=== PATIENT | male | born 1955 | race Caucasian/White ===

== ENCOUNTER → 2017-02-19 | Outpatient (REF) | payer MEDICARE, MEDICAID ==
[~2017-02-19] MED LIST: /PANT40TA; /WARF5TA; ASPI325T; ATEN50TA2; COUM1TAB; FURO80TA2; GLUC500T; K-TA10TA; LORTAB; RAMI25CA; SIMV40TA2; SPIR50TA2; VICO5TAB
[2017-02-19 14:40] LABS: BLOOD UREA NITROGEN 29 MG/DL (7-18); CREATININE FOR GFR 0.96 MG/DL (0.70-1.30); FREE T4 1.36 NG/DL (0.76-1.46); GLOMERULAR FILTRATION RATE > 60.0 (>49)
[2017-02-25 00:07] LABS: ACETYLCHOLINE RCPTOR BINDING A < 0.03 nmol/L (0.00-0.24); STRIATIONAL ANTIBODIES Negative (Neg:<1:40)
== END ==
LOC: M LABNEURO 10:14
PROVIDERS: ATTEND Psychiatry & Neurology Neurology
DX: Z13.29 Encounter for screening for other suspected endocrine disorder (principal); I10 Essential (primary) hypertension; E11.9 Type 2 diabetes mellitus without complications; R13.10 Dysphagia, unspecified

== ENCOUNTER → 2018-08-10 | Outpatient (REF) | payer MEDICARE, MEDICAID | LOC: M LAB REF 15:06 | DX: L08.9 Local infection of the skin and subcutaneous tissue, unspecified (principal) | CPT/HCPCS: 87186 ==

== ENCOUNTER → 2020-03-26 | Outpatient (CLI) | payer MEDICARE, MEDICAID ==
[~2020-03-26] MED LIST changes: -/PANT40TA; -/WARF5TA; +ACET500T15 PO; +CARD60TA3 PO; +COUM1TAB17; +ELIQ5TAB PO; +FURO40TA2 PO; -FURO80TA2; +FURO80TA2 PO; +GLIM4TAB5 PO; +HYDR-4514 PO; +HYDR-643 PO; +INSULANT SC; +IPRA0.00 NEB; +ISOS30TA4 PO; -K-TA10TA; +K-TA10TA PO; +LEVA1TAB2 PO; +MAGN400T2 PO; +METO1TAB7 PO; +NICO14PA TOP; +ONDA8TAB10 PO; +POTA10TA16 PO; +PROC10TA4 PO; +PROT1TAB2; +PROT1TAB2 PO; +RAMI1CAP22 PO; -RAMI25CA; +RAMI25CA PO; -SIMV40TA2; +SIMV40TA2 PO; +SIMV40TA20 PO; +TRAZ1TAB11 PO; +TREL1AER PO; -VICO5TAB; +VICO5TAB PO; +VICT18IN SC
== END ==
LOC: M PLARAD 11:10
PROVIDERS: ATTEND Internal Medicine Pulmonary Disease
DX: C34.31 Malignant neoplasm of lower lobe, right bronchus or lung (principal)

== ENCOUNTER 2020-04-03 16:16 | Inpatient (IN) | payer MEDICARE, MEDICAID ==
[~2020-04-03] VITALS: Ht 182.9 cm; Wt 102.8 kg
[~2020-04-03 16:16] MED LIST changes: -ACET500T15 PO; -FURO40TA2 PO; -GLIM4TAB5 PO; -HYDR-4514 PO; -HYDR-643 PO; -LEVA1TAB2 PO; -ONDA8TAB10 PO; -POTA10TA16 PO; -PROC10TA4 PO; -RAMI1CAP22 PO; -SIMV40TA20 PO; -TREL1AER PO
[2020-04-03 16:51] LABS: BASO # 0.1 10^3/uL (0.0-0.2); BASO % 0.7 % (0.0-1.0); EOS # 0.4 10^3/uL (0.0-0.5); EOS % 3.5 % (0.0-3.0); HEMOGLOBIN 11.4 g/dl (13.5-17.5); LYMPH # 0.9 10^3/uL (1.5-5.0); LYMPH % 7.2 % (24.0-44.0); MEAN CORPUSCULAR HEMOGLOBIN 25.4 pg (27.0-33.0); MEAN CORPUSCULAR VOLUME 84.6 fl (80.0-96.0); MONO # 0.9 10^3/uL (0.0-0.8); MONO % 7.6 % (0.0-5.0); NEUTROPHILS # 9.5 10^3/uL (1.5-8.5); NEUTROPHILS % 80.6 % (36.0-66.0); PLATELET COUNT, AUTOMATED 319 10^3/uL (150-450); RED BLOOD COUNT 4.49 10^6/uL (4.30-6.10); WHITE BLOOD COUNT 11.7 10^3/uL (4.0-10.0)
[2020-04-03] MEDS ORDERED: HYDR-643 PO (16:55)
[2020-04-03] MEDS ORDERED: TREL1AER PO (16:55)
[2020-04-03 17:20] LABS: INR 1.21
[2020-04-03 17:24] LABS: ALBUMIN 2.6 GM/DL (3.2-5.2); ALT/SGPT 19 U/L (12-78); BILIRUBIN,DIRECT 0.1 MG/DL (0.0-0.2); BILIRUBIN,TOTAL 0.4 MG/DL (0.2-1.0); BLOOD UREA NITROGEN 21 MG/DL (7-18); CALCIUM LEVEL 9.8 MG/DL (8.8-10.2); CARBON DIOXIDE LEVEL 33 MEQ/L (21-32); CHLORIDE LEVEL 98 MEQ/L (98-107); CREATININE FOR GFR 0.72 MG/DL (0.70-1.30); GLOMERULAR FILTRATION RATE > 60.0 (>49); GLUCOSE, FASTING 186 MG/DL (70-100); POTASSIUM SERUM 4.3 MEQ/L (3.5-5.1); SODIUM LEVEL 133 MEQ/L (136-145)
[2020-04-03] MEDS ORDERED: ISOVUE-370 76% 100ML VIAL As Ordered ONE (17:40)
--- NOTE | 2020-04-03 17:49 | REP ---
PORTABLE CHEST X-RAY: SINGLE VIEW. HISTORY: Dyspnea and cough. COMPARISON STUDY: April 11, 2010 FINDINGS: A bipolar pacemaker is seen in the right heart via the left side as before. The power plant has been exchanged, and one of the pacemaker leads does not appear to be connected to the power plant. Oxygen delivery tubing is seen. Heart is mildly prominent. The left lung is clear. There is a right pleural effusion blunting the lateral pleural angle, small to moderate in size. No infiltrate is seen. IMPRESSION: Small to moderate-sized right pleural effusion suspected. Pacemaker in place. One of the pacemaker leads does not appear to be connected to the power plant. Electronically Signed by Silvestre Hudson MD 04/03/2020 06:03 P
[2020-04-03 17:50] LABS: CK-MB VALUE MASS < 1.0 NG/ML (<3.6); CPK CREATINE PHOSPHOKINASE 20 U/L (39-308); NT-PRO BNP 643 PG/ML (<125); TROPONIN I < 0.02 NG/ML (< 0.10)
--- NOTE | 2020-04-03 18:37 | REPVR ---
PROCEDURE INFORMATION: Exam: CT Angiography Chest With Contrast Exam date and time: 04/03/2020 5:58 PM Age: 64 years old Clinical indication: Shortness of breath; Additional info: Shortness of breath, cancer, effusion TECHNIQUE: Imaging protocol: Computed tomographic angiography of the chest with intravenous contrast. 3D rendering: MIP and/or 3D reconstructed images were created by the technologist. Radiation optimization: All CT scans at this facility use at least one of these dose optimization techniques: automated exposure control; mA and/or kV adjustment per patient size (includes targeted exams where dose is matched to clinical indication); or iterative reconstruction. Contrast material: ISOVUE 370; Contrast volume: 75 ml; Contrast route: INTRAVENOUS (IV); COMPARISON: [place] PORTABLE CHEST X-RAY 04/03/2020 4:41 PM FINDINGS: Tubes, catheters and devices: AICD. Cardiac leads are in place. Pulmonary arteries: No pulmonary emboli. Aorta: The ascending aorta is upper limits of normal measuring 4 cm AP. There is no evidence of dissection. Atherosclerosis in the aorta and coronary arteries. Lungs: Consolidation right perihilar and right lower lobe with air bronchogram in the lower lobe. Pleural space: Large right pleural effusion. Heart: No significant cardiomegaly or pericardial effusion. Lymph nodes: Pretracheal lymph nodes measuring up to 2.3 cm as well as precarinal, infracarinal and right hilar janes mass measuring up to 3.5 cm causing narrowing of the bronchi. Calcified granulomas as well as calcified lymph nodes in the mediastinum and candice. Adrenals: No significant findings in the upper abdomen other than bilateral adrenal enlargement. Bones/joints: Skeletal degeneration. Soft tissues: Unremarkable. IMPRESSION: 1. No pulmonary emboli. 2. Large right pleural effusion with consolidation in the right middle and lower lobes and right perihilar janes mass narrowing the bronchi which may be due to primary lung carcinoma or metastatic disease. 3. Bilateral adrenal enlargement which could be due to metastatic disease. Electronically signed by: Tabatha Bansal On 04/03/2020 18:37:43 PM
[2020-04-03] MEDS ORDERED: GLUCOSE 4GM CHEW TABLET PO PRN (19:30)
[2020-04-03] MEDS ORDERED: GLUCAGON INJ 1MG VIAL SC PRN (19:30)
[2020-04-03] MEDS ORDERED: MOM 30ML SUSPENSION UDC PO PRN (19:30)
[2020-04-03] MEDS ORDERED: DEXTROSE 50% 50 ML SYRINGE IV PRN (19:30)
--- NOTE | 2020-04-03 19:31 | HPEPDOC ---
[facility] Medical History & Physical Date of Admission Apr 03, 2020 Date of Service: Apr 03, [address] Ananth Ellis Attending Physician: PEDRO CHANDLER MD History and Physical TIME OF SERVICE: 8:05 PM CHIEF COMPLAINT: "Having a hard time breathing"..."fluid in my lungs." HISTORY OF PRESENT ILLNESS: This is a 64-year-old gentleman who presented with chief complaints of having a hard time breathing for about 1 week and fluid in his lungs. He has a history of lung cancer with malignant pleural effusion that was last drained in February at [facility]. He saw his PCP, Dr. Ellis today, who told him not to take apixaban tonight and sent him here for further evaluation. In addition to the shortness of breath, he has had persistent, 7 out of 10 in severity diffuse chest pressure for about 1 week; he attributes the chest pressure to the "fluid" in his lungs because he had similar pressure associated with a pleural effusion in the past prior to the thoracentesis. He reports having an occasional cough productive of clear sputum, and denies having lower extremity edema. Per Dr. Contreras the patient was found to be in rapid A. fib and given 1 dose of IV Cardizem; imaging studies confirmed the presence of a right sided pleural effusion. 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 diagnosed in February, plans for chemotherapy are pending PET scan results COPD secondary to tobacco abuse Chronic CAD, status post placement of a stent at [facility] more than 10 years ago Chronic hypertension IDDM Dyslipidemia LIO Dual Chamber Pacemaker placement for AV block Atrial fibrillation Cholecystectomy Resection of skin cancer Shoulder surgery Resection of a tibial abscess SOCIAL HISTORY: Quit smoking 3 months ago (45 year pack habit) He quit drinking about 18 years ago 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 HOME MEDICATIONS: Please see below. PHYSICAL EXAMINATION: Vital Signs Date Time Temp Pulse Resp B/P (MAP) Pulse Ox O2 Delivery O2 Flow Rate FiO2 04/03/20 16:17 99.0 106 38 137/93 (108) 96 Nasal Cannula 4.0 GEN: well-nourished / well developed/ NAD INTEGUMENT: not flushed/ not jaundice HEENT: NCAT / lips acyanotic /mucus membranes moist and pink CVS: Heart rate irregularly irregular and tachycardic/NMRG/ no lower extremity edema LUNGS: able to speak full sentences without stopping to take a breath / no coughing / . Breath sounds are diminished ABDOMEN: Contour ( obese) MSK/EXTREMITIES: range of motion intact in all 4 extremities / mild fingernail clubbing NEURO: CN 2-12 are grossly intact / speech is not dysarthric PSYCH: alert and oriented to person place and time/ able to understand and follow all commands LABORATORY DATA: 04/03/20 16:39 Immature Granulocyte % (Auto) 0.4, Neutrophils (%) (Auto) 80.6H, Lymphocytes (%) (Auto) 7.2L, Monocytes (%) (Auto) 7.6H, Eosinophils (%) (Auto) 3.5H, Basophils (%) (Auto) 0.7, Neutrophils # (Auto) 9.5H, Lymphocytes # (Auto) 0.9L, Monocytes # (Auto) 0.9H, Eosinophils # (Auto) 0.4, Basophils # (Auto) 0.1, Nucleated Red Blood Cells % (auto) 0.0, Prothrombin Time 15.0H, Prothromb Time International Ratio 1.21, Anion Gap 2L, Glomerular Filtration Rate > 60.0, Calcium Level 9.8, Total Bilirubin 0.4, Direct Bilirubin 0.1, Aspartate Amino Transf (AST/SGOT) 11, Alanine Aminotransferase (ALT/SGPT) 19, Alkaline Phosphatase 138H, Total C reatine Kinase 20L, Creatine Kinase MB < 1.0, Creatine Kinase MB Relative Index 5.00H, Troponin I < 0.02, KA-Zxo-O-Type Natriuretic Peptide 643H, Total Protein 7.0, Albumin 2.6L, Albumin/Globulin Ratio 0.6 04/03/20 16:40: POC Glucose (Misc Panel) 190H, POC Sodium (Misc Panel) 135L, POC Potassium (Misc Panel) 4.2, POC Chloride (Misc Panel) 94L, POC Total CO2 (Misc Panel) 30.0H, POC Blood Urea Nitrogen (Misc Panel 21, POC Ionized Calcium (Misc Panel) 4.7, POC Creatinine (Misc Panel) 0.7, POC Hematocrit (Misc Panel) 37.0L 04/03/20 16:43: POC Troponin I (Misc) 0.00 IMAGING: Chest x-ray " IMPRESSION: Small to moderate-sized right pleural effusion suspected. Pacemaker in place. One of the pacemaker leads does not appear to be connected to the power plant." CTA chest " IMPRESSION: 1. No pulmonary emboli. 2. Large right pleural effusion with consolidation in the right middle and lower lobes and right perihilar janes mass narrowing the bronchi which may be due to primary lung carcinoma or metastatic disease. 3. Bilateral adrenal enlargement which could be due to metastatic disease. " MICROBIOLOGY: Please see below. ASSESSMENT: Mr. Carlisle is a 64-year-old with a history of COPD, neuroendocrine tumor of the lung with malignant pleural effusion, chronic CAD, HTN, IDDM, dyslipidemia, LIO, and atrial fibrillation who is admitted for management of A. fib with RVR and right-sided malignant pleural effusion. PLAN: 1. Atrial Fibrillation w RVR RVR may be due to pleural effusion EKG showed afib w HR of 122 and PVCs Trop K, & Ca were wnl CTA was neg for PE BNP was slightly elevated but clinically he did not appear to have fluid ove rload that could be contributing to the rapid afib Plan: ICU / telemetry / start cardizem drip once rate is controlled will resume home dose of PO cardizem 60mg PO TID and titrate the dose as needed / hold apixaban prior to procedure tomorrow / f/u Echo, serial Trops, mag and TSH 2. Recurrent Malignant Pleural Effusion 2/2 Poorly differentiated neuroendocrine tumor of the lung His last thoracentesis was in February at [facility] Plan: NPO after midnight/ will ask the day time team to call IR vice president of talent acquisition in the morning for IR guided thoracentesis and possible pigtail placement / hold abpixaban / request records from [facility] / f/u w Hem/Onc on March 10 3. SIRS Likely reactive due to a combination of afib and cancer SIRS criteria include: HR >90 / RR > 20 Plan telemetry / f/u lactic acid, blood cx and VBG 4. Abnormal pacemaker lead placement ? Chest xray reports "One of the pacemaker leads does not appear to be connected to the power plant" ? Plan: day time team can call the department of radiology during the day to confirm weather this is accurate and consider Cardiology consult 5. Normocytic Anemia His hemoglobin has dropped 11.4 from 12.6 a few weeks ago Plan: Follow up repeat CBC, iron studies and stool occult 6. Asymptomatic Hyponatremia Possibly 2/2 SIADH from lung CA Plan: f/u serum osmol, Uosmol & Jonathon to confirm cause 7.Mild Metabolic Alkalosis Likely 2/2 contraction alkalosis due to diuretic use Plan: the daytime team can decide if NS or acetazolamide are indicated pending Urine Cl determine if it is chloride responsive or chloride unresponsive 7. Stable COPD He is not wheezing. He doesn't have decreased air entry with decreased breath sounds Plan: Trilogy Ellipta and albuterol 8. Chronic CAD/ Dyslipidemia Plan: Metoprolol 9. Chronic hypertension Plan: Diltiazem, furosemide, isosorbide mononitrate, metoprolol succinate, ramipril 10. IDDM Plan: diabetic diet / f/u accuchecks & A1C / hypoglycemia protocol / sliding scale insulin / hold oral anti-glycemics / c/w , Lantus 40 units daily at bedtime and Victoza 1.2 mg subcutaneously daily 11. LIO Plan: own CPAP 12. Obesity With BMI 31.4, and coexisting sleep apnea and diabetes complicates care Plan: f/u A1C / the pt can f/u w his or her PCP for a manager global communications consult DVT PROPHYLAXIS: SCDs DISPOSITION: likely home after more than 2 midnight's stay Home Medications Scheduled Apixaban (Eliquis) 5 Mg Tablet, 5 MG PO BID ON HOLD PER REASON FOR PROCEDURE ON 04/10/20 Diltiazem Hcl (Cardizem) 60 Mg Tablet, 60 MG PO TID Fluticasone/Umeclidin/Vilanter (Trelegy Ellipta 100-62.5-25) 1 Each Blst.w.dev, 1 PUFF PO DAILY Furosemide (Furosemide) 40 Mg Tablet, 40 MG PO DAILY Glimepiride (Glimepiride) 4 Mg Tablet, 4 MG PO DAILY Insulin Glargine (Lantus) 100 Unit/1 Ml Vial, 40 UNITS SC QHS Isosorbide Mononitrate (Isosorbide Mononitrate ER) 30 Mg Tab.er.24h, 30 MG PO DAILY Levofloxacin (Levaquin) 500 Mg Tablet, 500 MG PO DAILY@06 Liraglutide (Victoza 2-Sg) 0.6 Mg/0.1 Ml Pen.injctr, 1.2 MG SC DAILY Magnesium Oxide (Magnesium Oxide) 400 Mg Tablet, 400 MG PO DAILY Metoprolol Succinate (Metoprolol Succinate) 50 Mg Tab.er.24h, 50 MG PO DAILY Nicotine (Nicotine Patch) 14 Mg Patch.td24, 1 PATCH TOP DAILY APPLIED TO LEFT SHOULDER Pantoprazole Sodium (Protonix) 40 Mg Tablet.dr, 40 MG PO DAILY Potassium Chloride (Potassium Chloride) 10 Meq Tab.er.prt, 10 MEQ PO BID Ramipril (Ramipril) 2.5 Mg Capsule, 2.5 MG PO DAILY Simvastatin (Simvastatin) 40 Mg Tablet, 40 MG PO QHS Scheduled PRN Acetaminophen (Acetaminophen) 500 Mg Tablet, 1,000 MG PO Q6H PRN for HEADACHE Hydrocodone/Acetaminophen (Hydrocodone-Acetamin 7.5-325) 1 Each Tablet, 1 TAB PO Q4H PRN for PAIN Ipratropium/Albuterol Sulfate (Iprat-Albut 0.5-3(2.5) mg/3 ml) 3 Ml Ampul.neb, 1 VIAL NEB TID PRN for SHORTNESS OF BREATH Allergies Coded Allergies: Penicillins (Verified Allergy, Unknown, HIVES, 04/03/20) A-FIB/CHADSVASC A-FIB History Current/History of A-Fib/PAF?: Yes Current PO Anticoag Therapy: No Treatment Treatment ordered: Holding Other Reason Anticoagulant not given: Recent/upcomin procedure PEDRO CHANDLER MD Apr 03, 2020 19:31
[2020-04-03] MEDS ORDERED: FURO40TA2 PO (19:46)
[2020-04-03] MEDS ORDERED: SIMV40TA20 PO (19:46)
[2020-04-03] MEDS ORDERED: POTA10TA16 PO (19:47)
[2020-04-03] MEDS ORDERED: RAMI1CAP22 PO (19:47)
[2020-04-03] MEDS ORDERED: ACET500T15 PO (19:47)
[2020-04-03] MEDS ORDERED: GLIM4TAB5 PO (19:47)
[2020-04-03] MEDS ORDERED: HYDR-4514 PO (19:47)
[2020-04-03 20:29] LABS: VENOUS BASE EXCESS 6.6 (-2.0-2.0); VENOUS HCO3 32.7 MEQ/L (23.0-27.0); VENOUS O2 SATURATION 81.6 % (60.0-80.0); VENOUS PARTIAL PRESSURE CO2 53.7 mmHg (38.0-50.0); VENOUS PARTIAL PRESSURE O2 45.2 mmHg (30.0-50.0); VENOUS PH 7.402 UNITS (7.330-7.430); VENOUS STANDARD HCO3 30.1 MEQ/L; VENOUS TOTAL CO2 34.3 MEQ/L (24.0-28.0)
[2020-04-03] MEDS ORDERED: IPRATROPIUM 0.5MG/ALBUTEROL 2.5MG INH SOL UD 3ML (DUONEB) NEB PRN (20:30)
[2020-04-03] MEDS ORDERED: ANEXSIA, NORCO 7.5MG/325MG TABLET(HYDROCODONE/APAP) PO PRN (20:30)
[2020-04-03 20:55] LABS: MAGNESIUM LEVEL 1.8 MG/DL (1.8-2.4); PERCENT SATURATION 11.2 % (19.7-50.0); PHOSPHORUS LEVEL 3.3 MG/DL (2.5-4.9); TROPONIN I 0.02 NG/ML (< 0.10)
[2020-04-03 20:59] VITALS: BP 153/80
[2020-04-03] MEDS: HumaLOG INSULIN (NovoLOG) PER UNIT SC SCH (21:00)
[2020-04-03] MEDS ORDERED: diltiaZEM 125 MG in NS 100 ML IV SCH ×2 (21:00→21:41)
[2020-04-03 21:07] LABS: HEMOGLOBIN A1c 10.6 %
[2020-04-03] MEDS: POTASSIUM CHLORIDE 10 MEQ SR TABLET PO SCH (21:11)
[2020-04-03 21:30] VITALS: BP 153/77
[2020-04-03 21:45] VITALS: BP 129/79
[2020-04-03 21:58] LABS: OSMOLALITY URINE 629 MOSM/KG (500-800)
[2020-04-03 22:00] VITALS: BP 143/80
[2020-04-03 22:10] LABS: CHLORIDE,RANDOM URINE 84 MEQ/L; SODIUM,RANDOM URINE 76 MEQ/L
[2020-04-03] MEDS: LEVEMIR (INSULIN DETEMIR) 1 UNITS/0.01ML SC SCH (22:23)
[2020-04-03] MEDS: ACETAMINOPHEN TAB 650MG DOSE (2X325MG) PO PRN (22:28)
[2020-04-04] VITALS (18 sets, daily range): BP systolic 104–143; BP diastolic 53–76; O2SAT 94–95
[2020-04-04 03:17] LABS: HEMATOCRIT 35.2 % (42.0-52.0); HEMOGLOBIN 10.5 g/dl (13.5-17.5); MEAN CORPUSCULAR HEMOGLOBIN 25.5 pg (27.0-33.0); MEAN CORPUSCULAR HGB CONC 29.8 g/dl (32.0-36.5); MEAN CORPUSCULAR VOLUME 85.6 fl (80.0-96.0); PLATELET COUNT, AUTOMATED 278 10^3/uL (150-450); RED BLOOD COUNT 4.11 10^6/uL (4.30-6.10)
[2020-04-04 03:41] LABS: BLOOD UREA NITROGEN 17 MG/DL (7-18); CALCIUM LEVEL 9.5 MG/DL (8.8-10.2); CARBON DIOXIDE LEVEL 34 MEQ/L (21-32); CHLORIDE LEVEL 102 MEQ/L (98-107); GLOMERULAR FILTRATION RATE > 60.0 (>49); GLUCOSE, FASTING 110 MG/DL (70-100); SODIUM LEVEL 137 MEQ/L (136-145); TROPONIN I < 0.02 NG/ML (< 0.10)
--- NOTE | 2020-04-04 06:25 | ECGEPIP ---
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
[2020-04-04] MEDS: HumaLOG INSULIN (NovoLOG) PER UNIT SC SCH ×4 (07:30→21:12)
[2020-04-04] MEDS: TIOTROPIUM INHALER/CAPSULE (SPIRIVA) INH SCH (08:00)
[2020-04-04] MEDS: ADVAIR HFA 115/21MCG INHALER INH SCH ×2 (08:00→19:40)
[2020-04-04] MEDS: NICOTINE 14 MG/24 HR TRANSDERMAL TOP SCH (08:20)
[2020-04-04] MEDS: POTASSIUM CHLORIDE 10 MEQ SR TABLET PO SCH ×2 (08:21→21:14)
[2020-04-04] MEDS: FUROSEMIDE 40 MG TAB PO SCH (08:22)
[2020-04-04] MEDS: ramipriL 1.25 MG CAP PO SCH (08:22)
[2020-04-04] MEDS: PANTOPRAZOLE 40MG TAB (PROTONIX) PO SCH (08:22)
[2020-04-04] MEDS: METOPROLOL SUCC (TopROL XL) 50MG **XL** TAB PO SCH (08:23)
[2020-04-04] MEDS: MAGNESIUM OXIDE 400 MG TAB (MAG-OX) PO SCH (08:23)
[2020-04-04] MEDS: ISOSORBIDE MON. (IMDUR) 30 MG XR TAB PO SCH (08:23)
[2020-04-04] MEDS ORDERED: VICTOZA SC SCH (09:00)
[2020-04-04] MEDS ORDERED: TRELEGY INH SCH (09:00)
--- NOTE | 2020-04-04 12:12 | IPNPDOC ---
Text Note Date of Service The patient was seen on 04/04/20. NOTE Subjective: Patient is a 64-year-old male with a PMHx of 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 fib (on Eliquis), Chronic HTN, IDDM2, DLP, LIO, who presented to the hospital with complaints of shortness of breath, progressive over 1 week duration. Patient had a history of a right-sided pleural effusion secondary to malignancy that was drained in February at [facility]. Patient was scheduled to see his chief digital officer next week April 10 for drainage. However, he experienced worsening SOB while at home and his PCP advised him to present to the ER for further evaluation. In the ER, patient was found to have atrial fibrillation with rapid ventricular rate as well as recurrent right-sided pleural effusion is admitted to the hospitalist service for further evaluation. Patient was seen and examined at the bedside. Currently he reports SOB and R sided chest pain with deep inspiration. Denies any significant cough. Denies N/V, abdominal pain, C/D or dysuria. Objective: Vitals (See below) General: Lying in bed, appears to be SOB, AAOx3 HEENT: NC, AT CVS: +S1S2 Lungs: Diminished lung sounds at right lung field. No evidence of wheezing, rhonchi or crackles Abdomen: Soft, ND, NT Extremities: - Edema, - Calf tenderness Assessment and plan: Atrial Fibrillation w/ RVR - possibly 2/2 recurrent pleural effusion - Patient reports that his breathing is unchanged but denies any chest pain or palpitations - Patient is hemodynamically stable and afebrile - Rate appears to be well-controlled - Troponin x3 negative - EKG reviewed - Will discontinue Cardizem drip and continue with Cardizem and metoprolol by mouth - Will hold anticoagulation (re: Thoracentesis) Recurrent Malignant Pleural Effusion 2/2 Poorly differentiated neuroendocrine tumor of the lung - Patient still reports shortness of breath - History of thoracenteses in 02/2019 at [facility] - Requiring 2 L nasal cannula supplementation of oxygen - CTA 04/03: 1. No pulmonary emboli. 2. Large right pleural effusion with consolidation in the right middle and lower lobes and right perihilar janes mass narrowing the bronchi which may be due to primary lung carcinoma or metastatic disease. 3. Bilateral adrenal enlargement which could be due to metastatic disease. - Patient is scheduled for thoracentesis to be completed today by interventional radiology (will continue to hold Eliquis Normocytic Anemia - Hemoglobin appears to be stable - No evidence of bleeding s/p Hyponatremia Stable COPD - No evidence of wheezing - Continue with inhaled therapy as ordered Chronic CAD/ Dyslipidemia - c/w Metoprolol, Isosorbide mononitrate , Ramipril Chronic hypertension - c/w Metoprolol, Diltiazem, Furosemide, Isosorbide mononitrate, Ramipril IDDM - c/w ISS and Long acting insulin LIO on CPAP - May use CPAP while inpatient Obesity - BMI of 31 - Complicating medical care GI prophylaxis - c/w Protonix DVT prophylaxis - c/w TEDs/Sequentials Disposition: - Will have thoracentesis completed today VS,Martín, I+O VS, Martín, I+O Laboratory Tests 04/03/20 16:39 04/04/20 03:10 Vital Signs Date Time Temp Pulse Resp B/P (MAP) Pulse Ox O2 Delivery O2 Flow Rate FiO2 04/04/20 11:06 99 81 22 97 Nasal Cannula 2 04/04/20 08:23 134/75 I&O- Last 24 Hours up to 6 AM 04/04/20 06:00 Intake Total 198 ml Output Total 625 ml Balance -427 ml TERRELL KAYE MD Apr 04, 2020 12:12
--- NOTE | 2020-04-04 12:58 | REP ---
Chest x-ray: Two views. History: Post right thoracentesis. Comparison study: April 03, 2020. Findings: There is no evidence of pneumothorax. Right hemidiaphragm is elevated. There is improvement noted in the right pleural effusion however the degree of improvement is slight, particularly considering that 1/2 liter was removed from the right pleural space. The left pleural angles remain sharp. Cardiomegaly with pacemaker leads again noted unchanged. Impression: Slightly improved right effusion. No complication seen. Cardiomegaly with pacemaker. Electronically Signed by Silvestre Hudson MD 04/04/2020 12:49 P
[2020-04-04 13:00] LABS: APPEARANCE, BODY FLUID CLOUDY (CLEAR); PLEURAL FL COLOR YELLOW (COLORLESS); SOURCE, BODY FLUID PLEURAL
[2020-04-04 13:03] LABS: PH BODY FLUID 7.588 UNITS (NOT ESTABLISHED); SOURCE, BODY FLUID pH PLEURAL
[2020-04-04 13:27] LABS: AMYLASE, BODY FLUID 62 U/L (NOT ESTABLISHED); LDH, BODY FLUID 215 U/L (NOT ESTABLISHED); SOURCE, BODY FLUID AMYLASE PLEURAL; SOURCE, BODY FLUID GLUCOSE PLEURAL; SOURCE, BODY FLUID LDH PLEURAL; SOURCE, BODY FLUID TOT PROTEIN PLEURAL; TOTAL PROTEIN, BODY FLUID 3.9 G/DL (NOT ESTABLISHED)
[2020-04-04] MEDS: ACETAMINOPHEN TAB 650MG DOSE (2X325MG) PO PRN ×2 (14:53→21:14)
[2020-04-04] MEDS ORDERED: LevoFLOXacin 500 MG TABLET PO SCH (16:00)
[2020-04-04] MEDS: LevoFLOXacin 500 MG TABLET PO SCH (16:18)
--- NOTE | 2020-04-04 16:25 | REP ---
Ultrasound-guided thoracentesis The procedure was performed by YADY Acharya, under the direct supervision of Dr. Hudson. The risks and benefits of the procedure were explained to the patient and informed consent was obtained both verbally and written. Directly prior to the start of the procedure, a formal timeout was completed in the exam room. Pleural fluid on the right lung zone was localized using ultrasound guidance. The skin was prepped and draped in a sterile fashion. 6 ml of 1% lidocaine 10 mg/ml was used as a local anesthetic. Using ultrasound guidance, an 8-Sudanese multi side-hole catheter was inserted and advanced into the fluid. 1,500 ml of red colored fluid was withdrawn and sent to the lab for analysis. The patient tolerated the procedure well and there were no immediate complications. After the appropriate amount of monitored convalescence, the patient was discharged from the department. Reviewed by YADY Arreaga 04/04/2020 02:23 P Electronically Signed by Silvestre Hudson MD 04/04/2020 04:15 P
[2020-04-04] MEDS: LEVEMIR (INSULIN DETEMIR) 1 UNITS/0.01ML SC SCH (21:13)
[2020-04-05] VITALS: BP 143/60
[2020-04-05 04:00] VITALS: BP 131/55
[2020-04-05] MEDS: LevoFLOXacin 500 MG TABLET PO SCH (06:22)
[2020-04-05 07:27] LABS: BASO # 0.1 10^3/uL (0.0-0.2); BASO % 0.5 % (0.0-1.0); EOS # 0.4 10^3/uL (0.0-0.5); EOS % 4.1 % (0.0-3.0); HEMATOCRIT 34.8 % (42.0-52.0); HEMOGLOBIN 10.3 g/dl (13.5-17.5); LYMPH # 0.7 10^3/uL (1.5-5.0); LYMPH % 7.4 % (24.0-44.0); MEAN CORPUSCULAR HEMOGLOBIN 25.2 pg (27.0-33.0); MEAN CORPUSCULAR HGB CONC 29.6 g/dl (32.0-36.5); MEAN CORPUSCULAR VOLUME 85.1 fl (80.0-96.0); MONO # 0.8 10^3/uL (0.0-0.8); MONO % 7.7 % (0.0-5.0); NEUTROPHILS # 7.9 10^3/uL (1.5-8.5); NEUTROPHILS % 79.8 % (36.0-66.0); PLATELET COUNT, AUTOMATED 256 10^3/uL (150-450); RED BLOOD COUNT 4.09 10^6/uL (4.30-6.10); WHITE BLOOD COUNT 9.9 10^3/uL (4.0-10.0)
[2020-04-05] MEDS: TIOTROPIUM INHALER/CAPSULE (SPIRIVA) INH SCH (07:40)
[2020-04-05] MEDS: ADVAIR HFA 115/21MCG INHALER INH SCH (07:41)
[2020-04-05 07:53] LABS: BLOOD UREA NITROGEN 14 MG/DL (7-18); CALCIUM LEVEL 9.5 MG/DL (8.8-10.2); CARBON DIOXIDE LEVEL 34 MEQ/L (21-32); CHLORIDE LEVEL 98 MEQ/L (98-107); CREATININE FOR GFR 0.63 MG/DL (0.70-1.30); GLOMERULAR FILTRATION RATE > 60.0 (>49); GLUCOSE, FASTING 130 MG/DL (70-100); MAGNESIUM LEVEL 1.8 MG/DL (1.8-2.4); POTASSIUM SERUM 4.3 MEQ/L (3.5-5.1); SODIUM LEVEL 136 MEQ/L (136-145)
[2020-04-05 08:00] VITALS: BP 143/71
[2020-04-05] MEDS ORDERED: PREVNAR 13 VACCINE SYRINGE IM SCH (09:00)
[2020-04-05] MEDS: HumaLOG INSULIN (NovoLOG) PER UNIT SC SCH (09:04)
[2020-04-05] MEDS: NICOTINE 14 MG/24 HR TRANSDERMAL TOP SCH (09:04)
[2020-04-05 09:05] VITALS: BP 120/69
[2020-04-05] MEDS: ramipriL 1.25 MG CAP PO SCH (09:05)
[2020-04-05 09:06] VITALS: BP 120/69
[2020-04-05] MEDS: ISOSORBIDE MON. (IMDUR) 30 MG XR TAB PO SCH (09:06)
[2020-04-05] MEDS: METOPROLOL SUCC (TopROL XL) 50MG **XL** TAB PO SCH (09:06)
[2020-04-05] MEDS: PANTOPRAZOLE 40MG TAB (PROTONIX) PO SCH (09:06)
[2020-04-05] MEDS: FUROSEMIDE 40 MG TAB PO SCH (09:07)
[2020-04-05] MEDS: POTASSIUM CHLORIDE 10 MEQ SR TABLET PO SCH (09:07)
[2020-04-05] MEDS: MAGNESIUM OXIDE 400 MG TAB (MAG-OX) PO SCH (09:09)
[2020-04-05] MEDS: ACETAMINOPHEN TAB 650MG DOSE (2X325MG) PO PRN (09:09)
--- NOTE | 2020-04-05 09:13 | CR ---
DATE OF CONSULTATION: 04/05/2020 DATE OF SERVICE: 04/05/2020 REASON FOR CONSULTATION: Pleural effusion. Mr. Carlisle is a very pleasant 64-year-old male who is known to my practice for poorly differentiated adenocarcinoma with history of pleural effusion initially diagnosed in [place] who saw me in March during his first visit. I had planned on repeating thoracentesis next week. However, he had a rapid decline over the past few days and presented with acute respiratory distress, atrial fibrillation with rapid ventricular response (RVR). I had actually called him because he was unable to perform his PET scan because he could not lay down, otherwise he would not have contacted the office. At that point in time, I performed a chest x-ray showing reaccumulation of the right pleural effusion. He was admitted to the hospitalist team. However, the pulmonary service was not consulted at that point in time. As of now, the pleural fluid is pending pathology and cell block from the thoracentesis that was performed yesterday. The patient is feeling better. He has no lower extremity edema and no calf pain. He has been afebrile overnight and heart rate has remained just under 100. He denies any chest discomfort and desires to go home. PHYSICAL EXAMINATION: Temperature is 98.6, pulse is 94, respiratory rate is 20, blood pressure is 143/71, oxygen saturation is 99% on 2 liters. General: Awake, alert and oriented. Affect and mood are appropriate. Nutrition and hygiene are good. HEENT: Sclerae are clear and anicteric. Pupils equal and react to light. Mucous membranes are moist. Neck is supple. No tracheal deviation or mass. Lymphs: No cervical, supraclavicular or axillary adenopathy. Cardiac: Distant S1, S2. Currently irregularly irregular. Without audible murmur, rub or gallop. No systemic edema. Pulmonary: Decreased breath sounds approximately 1/3 of the right base. There are crackles just above this, otherwise lung crowe are clear. No rhonchi or wheeze. There is minimal dullness to percussion at the right base. There is normal chest expansion. Abdomen: Soft, nontender, nondistended. No hepatosplenomegaly. No masses or hernia. Extremities: No cyanosis, clubbing or edema. Skin is pale without rash, jaundice or bruising. Musculoskeletal: Normal muscle tone for stated age. without evidence of recent fracture or effusion. Neurologic: No unilateral weakness or tremor. LABORATORY EVALUATION: Pathology from cell block is pending. White blood cell count is down to 9.9, hemoglobin 10.3, hematocrit of 34.8 with a platelet count of 256. Surprisingly, some eosinophilia. Chemistry from this morning is still pending. Venous blood gas from 04/03/2020 shows a pH of 7.40, pCO2 of 53 and pAO2 of 45. INR is 1.21. IMAGING: Chest x-ray on 04/04/2020 shows a significant pleural effusion with mass on the right. The right apices right upper lobe is fairly clear. The left side is clear with a clear costophrenic angle. There is some deviation of the trachea. It almost appears that there is some narrowing of the trachea, but this may be secondary to rotation of the film. Pacer is in place, dual-chamber. 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 Unfortunately, I thought he would already be established with oncology by this time. He states he has an appointment next week with oncology. I will attempt to expedite his PET imaging as an outpatient in order to help staging so treatment decisions can be made. In the meantime, because there is a high chance of recurrence of the pleural effusion, especially if this is malignant, I have him following back in 2 weeks. He may require repeat thoracentesis until he is on treatment. After he is on treatment, will decide if the reaccumulation of the of the pleural effusion is enough that he would benefit from a PleurX catheter. As patient requests, he wants all appointments sent through his daughter. I have explained to the patient should any of his symptoms change or if he becomes progressively more short of breath, that he is either to come to the emergency room or call my office so that it can be addressed on a more urgent basis.
[2020-04-05] MEDS ORDERED: LEVA1TAB2 PO (10:03)
--- NOTE | 2020-04-05 10:26 | DS.PDOC ---
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 fib (on Eliquis), Chronic HTN, IDDM2, DLP, LIO, who presented to the hospital with complaints of shortness of breath, progressive over 1 week duration. Patient had a history of a right-sided pleural effusion secondary to malignancy that was drained in February at [facility]. Patient was scheduled to see his youth pastor next week April 10 for drainage. However, he experienced worsening SOB while at home and his PCP advised him to present to the ER for further evaluation. In the ER, patient was found to have atrial fibrillation with rapid ventricular rate as well as recurrent right-sided pl eural effusion is admitted to the hospitalist service for further evaluation. 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 - On baseline level of oxygen - CTA 04/03: 1. No pulmonary emboli. 2. Large right pleural effusion with consolidation in the right middle and lower lobes and right perihilar janes mass narrowing the bronchi which may be due to primary lung carcinoma or metastatic disease. 3. Bilateral adrenal enlargement which could be due to metastatic disease. - s/p Throacentesis - Will resume Eliquis on discharge Normocytic Anemia - Hemoglobin appears to be stable - No evidence of bleeding s/p Hyponatremia Stable COPD - No evidence of wheezing - Continue with inhaled therapy as ordered Chronic CAD/ Dyslipidemia - c/w Metoprolol, Isosorbide mononitrate , Ramipril Chronic hypertension - c/w Metoprolol, Diltiazem, Furosemide, Isosorbide mononitrate, Ramipril IDDM - c/w ISS and Long acting insulin LIO on CPAP - May use CPAP while inpatient Obesity - BMI of 31 - Complicating medical care GI prophylaxis - c/w Protonix DVT prophylaxis - c/w TEDs/Sequentials; will resume Eliquis on discharge DISCHARGE MEDICATIONS: Please see below. ALLERGIES: Please see below. PHYSICAL EXAMINATION ON DISCHARGE: Vitals (See below) General: Lying in bed, appears to be SOB, AAOx3 HEENT: NC, AT CVS: +S1S2 Lungs: Still with some diminished lung sounds at right lung base. No appreciable wheezing, rhonchi or crackles Abdomen: Abdomen is soft without any tenderness Extremities: Lower extremity edema, - Calf tenderness LABORATORY DATA: Please see below. ACTIVITY: [As tolerated]. DISCHARGE PLAN: Follow-up with primary care provider, oncology and pulmonology within 7 days Remain compliant with treatment plan and medications Return to the ER if you experience any problems DISPOSITION: Home DISCHARGE CONDITION: [Stable]. TIME SPENT ON DISCHARGE: 35 minutes. Vital Signs/I&Os Vital Signs Date Time Temp Pulse Resp B/P (MAP) Pulse Ox O2 Delivery O2 Flow Rate FiO2 04/05/20 09:06 96 120/69 04/05/20 09:05 22 96 Nasal Cannula 2.0 04/05/20 08:00 98.1 I&O- Last 24 Hours up to 6 AM 04/05/20 06:00 Intake Total 1527 ml Output Total 3840 ml Balance -2313 ml Laboratory Data Labs 24H Laboratory Tests 2 04/04/20 12:15: Body Fluid pH 7.588, Body Fluid pH Source PLEURAL, Body Fluid WBC (Auto) 2203H, Body Fluid RBC (Auto) 11, Body Fluid Mononuclear Cells % Auto 91.4H, Fluid Polymorphonuclear Cell % Auto 8.6H, Body Fluid Glucose Source PLEURAL, Body Fluid Glucose 86, Body Fluid Protein Source PLEURAL, Body Fluid Total Protein 3.9, Body Fluid LDH Source PLEURAL, Body Fluid Lactate Dehydrogenase 215, Body Fluid Amylase Source PLEURAL, Body Fluid Amylase 62, Pleural Fluid Source PLEURAL, Pleural Fluid Color YELLOW, Pleural Fluid Appearance CLOUDY 04/04/20 13:27: Bedside Glucose (Misc Panel) 64L 04/04/20 16:58: Bedside Glucose (Misc Panel) 191H 04/04/20 20:31: Bedside Glucose (Misc Panel) 254H 04/05/20 07:13: Immature Granulocyte % (Auto) 0.5, Neutrophils (%) (Auto) 79.8H, Lymphocytes (%) (Auto) 7.4L, Monocytes (%) (Auto) 7.7H, Eosinophils (%) (Auto) 4.1H, Basophils (%) (Auto) 0.5, Neutrophils # (Auto) 7.9, Lymphocytes # (Auto) 0.7L, Monocytes # (Auto) 0.8, Eosinophils # (Auto) 0.4, Basophils # (Auto) 0.1, Nucleated Red Blood Cells % (auto) 0.0, Anion Gap 4L, Glomerular Filtration Rate > 60.0, Calcium Level 9.5, Magnesium Level 1.8 CBC/BMP Laboratory Tests 04/05/20 07:13 FSBS Laboratory Tests Test 04/04/20 13:27 04/04/20 16:58 04/04/20 20:31 Range/Units Bedside Glucose (Misc Panel) 64 191 254 80-115 MG/DL Microbiology Microbiology 04/04/20 Acid Fast Stain, Received Pending 04/04/20 Mycobacterial Culture, Received Pending 04/04/20 Fungal Smear, Received Pending 04/04/20 Fungal Culture, Received Pending 04/04/20 Gram Stain - Final, Resulted 04/04/20 Body Fluid Culture, Resulted Pending 04/04/20 Stool Occult Blood (VENKATESH) - Final, Complete 04/03/20 Blood Culture - Preliminary, Resulted No growth after 24 hours . All specim... 04/03/20 Blood Culture - Preliminary, Resulted No growth after 24 hours . All specim... Discharge Medications Scheduled Apixaban (Eliquis) 5 Mg Tablet, 5 MG PO BID, (Reported) ON HOLD PER REASON FOR PROCEDURE ON 04/10/20 Diltiazem Hcl (Cardizem) 60 Mg Tablet, 60 MG PO TID, (Reported) Fluticasone/Umeclidin/Vilanter (Trelegy Ellipta 100-62.5-25) 1 Each Blst.w.dev, 1 PUFF PO DAILY, (Reported) Furosemide (Furosemide) 40 Mg Tablet, 40 MG PO DAILY, (Reported) Glimepiride (Glimepiride) 4 Mg Tablet, 4 MG PO DAILY, (Reported) Insulin Glargine (Lantus) 100 Unit/1 Ml Vial, 40 UNITS SC QHS, (Reported) Isosorbide Mononitrate (Isosorbide Mononitrate ER) 30 Mg Tab.er.24h, 30 MG PO DAILY, (Reported) Levofloxacin (Levaquin) 500 Mg Tablet, 500 MG PO DAILY@06 Liraglutide (Victoza 2-Sg) 0.6 Mg/0.1 Ml Pen.injctr, 1.2 MG SC DAILY, (Reported) Magnesium Oxide (Magnesium Oxide) 400 Mg Tablet, 400 MG PO DAILY, (Reported) Metoprolol Succinate (Metoprolol Succinate) 50 Mg Tab.er.24h, 50 MG PO DAILY, (Reported) Nicotine (Nicotine Patch) 14 Mg Patch.td24, 1 PATCH TOP DAILY, (Reported) APPLIED TO LEFT SHOULDER Pantoprazole Sodium (Protonix) 40 Mg Tablet.dr, 40 MG PO DAILY, (Reported) Potassium Chloride (Potassium Chloride) 10 Meq Tab.er.prt, 10 MEQ PO BID, (Reported) Ramipril (Ramipril) 2.5 Mg Capsule, 2.5 MG PO DAILY, (Reported) Simvastatin (Simvastatin) 40 Mg Tablet, 40 MG PO QHS, (Reported) Scheduled PRN Acetaminophen (Acetaminophen) 500 Mg Tablet, 1,000 MG PO Q6H PRN for HEADACHE, (Reported) Hydrocodone/Acetaminophen (Hydrocodone-Acetamin 7.5-325) 1 Each Tablet, 1 TAB PO Q4H PRN for PAIN, (Reported) Ipratropium/Albuterol Sulfate (Iprat-Albut 0.5-3(2.5) mg/3 ml) 3 Ml Ampul.neb, 1 VIAL NEB TID PRN for SHORTNESS OF BREATH, (Reported) Allergies Coded Allergies: Penicillins (Verified Allergy, Unknown, HIVES, 04/03/20) TERRELL KAYE MD Apr 05, 2020 10:26
--- NOTE | 2020-04-06 11:50 | ECHO ---
DATE OF SERVICE: 04/04/2020 AGE: 64. REFERRING PROVIDER: Macy Acosta MD PATIENT LOCATION: Room 3206. REASON FOR THE STUDY: Shortness of breath. 2D MEASUREMENTS: IVS: 1.4 cm LV: 4.3 cm LVPW: 1.3 cm LA: 5.7 cm Aorta: 3.6 cm RV: 3.7 cm IVC: 2.1 cm DOPPLER MEASUREMENTS: Peak velocity across the aortic valve: 1.0 m/s Peak velocity across the LVOT: 0.9 m/s Maximum tricuspid valve velocity: 2.7 m/s 2D COMMENTS: 1. Technically limited study due to poor acoustic window. 2. Normal left ventricular size with mildly increased left ventricular wall thickness. Left ventricular systolic function is normal, estimated as 65% to 70%. 3. Moderately enlarged left atrium. The right atrium appeared to be mildly enlarged. The right ventricle also appeared to be mildly enlarged, but the right ventricular free wall seemed to be denisse well. 4. The atrial septum appeared to be normal without evidence of defect or shunt. 5. Normal aortic root. 6. Small pericardial effusion noted, no evidence of cardiac tamponade. 7. Mildly calcified aortic valve with normal leaflet excursion. Mildly calcified mitral annulus with normal anterior mitral valve leaflet motion. Normal tricuspid valve and pulmonic valve. The proximal pulmonary artery branches were not well visualized. 8. The inferior vena cava was mildly enlarged, central venous pressure might be elevated. DOPPLER: Only mild tricuspid regurgitation detected. The calculated pulmonary artery systolic pressure varies between 30-40 mmHg. Assessment of the left ventricular diastolic function was limited in view of the underlying arrhythmias. IMPRESSION: 1. Normal global left ventricular systolic function with mild concentric left ventricular hypertrophy. 2. Assessment of the left ventricular diastolic function was limited. 3. Aortic valve sclerosis without stenosis or aortic regurgitation. 4. Moderately enlarged left atrium, isolated. There was no evidence of mitral regurgitation and/or stenosis. 5. Mild tricuspid regurgitation with mild pulmonary hypertension. The right heart chambers appeared to be mildly enlarged in limited views. 6. Pacemaker wire artifact noted in the right heart chambers. 7. Trace to small pericardial effusion noted, no evidence of cardiac tamponade. 8. There are some findings consistent with elevated central venous pressure, the inferior vena cava was mildly enlarged. MTDD
[2020-04-10] MEDS ORDERED: ONDA8TAB10 PO (11:04)
[2020-04-10] MEDS ORDERED: PROC10TA4 PO (11:04)
== END 2020-04-05 11:39 | disposition home health service (06) | DRG 181 ==
LOC: M ED 16:16 → M ED INP 19:20 → ENRESERV 19:49 → M ICU 20:44
PROVIDERS: ADMIT Internal Medicine; ATTEND Internal Medicine
PROC: 0W993ZZ Drainage of Right Pleural Cavity, Percutaneous Approach (ICD-10-PCS; principal; 2020-04-04 12:30)
DX: C34.91 Malignant neoplasm of unspecified part of right bronchus or lung (principal); J91.0 Malignant pleural effusion; E87.1 Hypo-osmolality and hyponatremia; E87.3 Alkalosis; I48.91 Unspecified atrial fibrillation; J44.9 Chronic obstructive pulmonary disease, unspecified; E11.9 Type 2 diabetes mellitus without complications; D64.9 Anemia, unspecified; I25.10 Atherosclerotic heart disease of native coronary artery without angina pectoris; I10 Essential (primary) hypertension; Z87.891 Personal history of nicotine dependence; E78.5 Hyperlipidemia, unspecified; E66.9 Obesity, unspecified; Z68.31 Body mass index [BMI] 31.0-31.9, adult; Z95.5 Presence of coronary angioplasty implant and graft; Z95.0 Presence of cardiac pacemaker; Z79.01 Long term (current) use of anticoagulants; Z79.4 Long term (current) use of insulin; Z79.899 Other long term (current) drug therapy; Z88.0 Allergy status to penicillin; G47.33 Obstructive sleep apnea (adult) (pediatric); R06.03 Acute respiratory distress

== ENCOUNTER 2020-04-15 13:35 | Inpatient (IN) | payer MEDICARE, MEDICAID ==
[2020-04-15] VITALS (18 sets, daily range): BP systolic 129–184; BP diastolic 77–99
[~2020-04-15] VITALS: Ht 182.9 cm; Wt 107.0 kg
[~2020-04-15 13:35] MED LIST changes: +ACET500T15 PO; +FURO40TA2 PO; +GLIM4TAB5 PO; +HYDR-4514 PO; +HYDR-643 PO; +LEVA1TAB2 PO; +ONDA8TAB10 PO; +POTA10TA16 PO; +PROC10TA4 PO; +RAMI1CAP22 PO; +SIMV40TA20 PO; +TREL1AER PO
[2020-04-15 15:06] LABS: BASO # 0.1 10^3/uL (0.0-0.2); BASO % 0.7 % (0.0-1.0); EOS # 0.6 10^3/uL (0.0-0.5); EOS % 5.8 % (0.0-3.0); HEMATOCRIT 35.9 % (42.0-52.0); HEMOGLOBIN 10.7 g/dl (13.5-17.5); LYMPH % 9.3 % (24.0-44.0); MEAN CORPUSCULAR HGB CONC 29.8 g/dl (32.0-36.5); MEAN CORPUSCULAR VOLUME 83.9 fl (80.0-96.0); MONO # 0.7 10^3/uL (0.0-0.8); MONO % 6.8 % (0.0-5.0); NEUTROPHILS # 8.3 10^3/uL (1.5-8.5); NEUTROPHILS % 76.9 % (36.0-66.0); PLATELET COUNT, AUTOMATED 356 10^3/uL (150-450); RED BLOOD COUNT 4.28 10^6/uL (4.30-6.10); WHITE BLOOD COUNT 10.8 10^3/uL (4.0-10.0)
[2020-04-15 15:31] LABS: ALBUMIN 2.4 GM/DL (3.2-5.2); ALT/SGPT 24 U/L (12-78); BILIRUBIN,DIRECT < 0.1 MG/DL (0.0-0.2); BILIRUBIN,TOTAL 0.2 MG/DL (0.2-1.0); TOTAL PROTEIN 6.6 GM/DL (6.4-8.2)
[2020-04-15 15:37] LABS: BLOOD UREA NITROGEN 14 MG/DL (7-18); CALCIUM LEVEL 9.8 MG/DL (8.8-10.2); CARBON DIOXIDE LEVEL 33 MEQ/L (21-32); CHLORIDE LEVEL 99 MEQ/L (98-107); CPK CREATINE PHOSPHOKINASE 19 U/L (39-308); CREATININE FOR GFR 0.64 MG/DL (0.70-1.30); GLOMERULAR FILTRATION RATE > 60.0 (>49); GLUCOSE, FASTING 153 MG/DL (70-100); MB/CK RELATIVE INDEX 5.26 (< OR =4); NT-PRO BNP 640 PG/ML (<125); POTASSIUM SERUM 4.2 MEQ/L (3.5-5.1); SODIUM LEVEL 136 MEQ/L (136-145); TROPONIN I < 0.02 NG/ML (< 0.10)
[2020-04-15] MEDS ORDERED: ISOVUE-370 76% 100ML VIAL As Ordered ONE (16:08)
--- NOTE | 2020-04-15 16:37 | ECGEPIP ---
[facility] - ED Test Date: 2020-04-15 Pat Name: SHRUTI DUGGAN Department: Room: - Gender: Male Systems Designer: ef : [id number] Requested By: Curtis Grullon Order Number: [id number] Reading MD: Ludy De Jesus Measurements Intervals [place] Rate: 91 P: GA: 0 QRS: -18 QRSD: 142 T: -15 QT: 347 QTc: 427 Interpretive Statements ATRIAL FIBRILLATION RIGHT BUNDLE BRANCH BLOCK DECREASED RATE 04/03/20 Electronically Signed on 04-15-2020 16:36:52 EDT by Ludy De Jesus
--- NOTE | 2020-04-15 16:45 | REP ---
Bilateral lower extremity Duplex Doppler venous ultrasound: Real time compression and duplex Doppler interrogation of the bilateral lower extremity deep venous system is performed. Bilaterally, the common femoral, superficial femoral and popliteal veins are fully compressible with transducer pressure and demonstrate normal spontaneous and phasic flow, without evidence of deep venous thrombosis. Impression: No evidence of deep venous thrombosis of the bilateral lower extremity femoral popliteal venous system. Electronically Signed by Markus Pérez MD 04/15/2020 04:36 P
[2020-04-15] MEDS ORDERED: KCL 20MEQ IN D5/NS 1000ML 1,000 ML IV SCH (17:23)
[2020-04-15] MEDS ORDERED: NORCO, ANEXSIA 5/325MG TABLET (HYDROcodone/ACETAMINOPHEN) PO PRN (17:30)
[2020-04-15] MEDS ORDERED: LEVALBUTEROL 1.25 MG/0.5 ML CONCENTRATE NEB NEB PRN (17:30)
[2020-04-15] MEDS ORDERED: BISACODYL 10 MG SUPP PR PRN (17:30)
[2020-04-15] MEDS ORDERED: PERCOCET 5MG/325MG TAB PO PRN ×2 (17:30)
[2020-04-15] MEDS ORDERED: ONDANSETRON 4MG/2ML VIAL IV PRN (17:30)
[2020-04-15] MEDS ORDERED: MIDAZOLAM INJ 2MG/2ML VIAL (J2250 PER 1MG) As Ordered ONE ×3 (17:38→18:07)
[2020-04-15] MEDS ORDERED: flumazeniL 0.5 MG/5 ML VIAL As Ordered ONE (17:38)
[2020-04-15] MEDS ORDERED: LIDOCAINE 1% MDV 20ML VIAL As Ordered ONE (17:39)
[2020-04-15] MEDS ORDERED: MIDAZOLAM INJ 2MG/2ML VIAL (J2250 PER 1MG) IV ONE ×2 (18:34→18:36)
[2020-04-15] MEDS ORDERED: LIDOCAINE 1% MDV 20ML VIAL IM ONE ×2 (18:37→18:41)
[2020-04-15] MEDS: LEVALBUTEROL 1.25 MG/0.5 ML CONCENTRATE NEB NEB SCH (19:17)
[2020-04-15 19:45] LABS: LDH LACTATE DEHYDROGENASE 143 U/L (87-241)
[2020-04-15 19:53] LABS: SOURCE, BODY FLUID pH PLEURAL
[2020-04-15] MEDS ORDERED: PROCHLORPERAZINE 5 MG TAB (S0183) PO PRN (20:15)
[2020-04-15] MEDS ORDERED: ONDANSETRON 4 MG TAB PO PRN (20:15)
[2020-04-15] MEDS ORDERED: IPRATROPIUM 0.5MG/ALBUTEROL 2.5MG INH SOL UD 3ML (DUONEB) NEB PRN (20:15)
[2020-04-15 20:22] LABS: APPEARANCE, BODY FLUID CLOUDY (CLEAR); PLEURAL FL COLOR YELLOW (COLORLESS); SOURCE, BODY FLUID PLEURAL
[2020-04-15] MEDS ORDERED: GLUCAGON INJ 1MG VIAL SC PRN (20:30)
[2020-04-15] MEDS ORDERED: DEXTROSE 50% 50 ML SYRINGE IV PRN (20:30)
[2020-04-15] MEDS ORDERED: GLUCOSE 4GM CHEW TABLET PO PRN (20:30)
[2020-04-15 20:33] LABS: AMYLASE, BODY FLUID 53 U/L (NOT ESTABLISHED); CHOLESTEROL, BODY FLUID < 50 MG/DL (NOT ESTABLISHED); LDH, BODY FLUID 213 U/L (NOT ESTABLISHED); SOURCE, BODY FLUID ALBUMIN PLEURAL; SOURCE, BODY FLUID AMYLASE PLEURAL; SOURCE, BODY FLUID CHOL PLEURAL; SOURCE, BODY FLUID GLUCOSE PLEURAL; SOURCE, BODY FLUID LDH PLEURAL; SOURCE, BODY FLUID TOT PROTEIN PLEURAL; SOURCE, BODY FLUID TRIG PLEURAL; TOTAL PROTEIN, BODY FLUID 3.2 G/DL (NOT ESTABLISHED); TRIGLYCERIDE, BODY FLUID 16 MG/DL (NOT ESTABLISHED)
[2020-04-15] MEDS: SIMVASTATIN 40 MG TAB PO SCH (20:44)
[2020-04-15] MEDS: APIXABAN 5 MG TAB (ELIQUIS) PO SCH (20:44)
[2020-04-15] MEDS: DOCUSATE SODIUM 100 MG CAP PO SCH (20:44)
[2020-04-15] MEDS: KETOROLAC 30 MG/ML 1ML VIAL IV SCH ×2 (20:45→23:48)
[2020-04-15] MEDS: POTASSIUM CHLORIDE 10 MEQ SR TABLET PO SCH (20:45)
[2020-04-15] MEDS ORDERED: HumaLOG INSULIN (NovoLOG) PER UNIT SC SCH (21:00)
[2020-04-15] MEDS ORDERED: LEVEMIR (INSULIN DETEMIR) 1 UNITS/0.01ML SC SCH (21:00)
[2020-04-15] MEDS ORDERED: METOPROLOL TART 50 MG TAB PO ONE (23:00)
[2020-04-15] MEDS ORDERED: SLF 3 ML SYR IV PRN (23:15)
[2020-04-16] VITALS: BP 137/70
[2020-04-16] MEDS: LEVALBUTEROL 1.25 MG/0.5 ML CONCENTRATE NEB NEB SCH ×4 (02:00→19:54)
--- NOTE | 2020-04-16 02:12 | REP ---
REASON: Followup pleural effusion. Latest prior for comparison is 04/04/2020. The technique utilized in obtaining the radiograph has magnified the cardiac silhouette and accentuated the interstitial markings. The right basilar opacity seen on the prior exam has increased. The cardiac silhouette is enlarged and magnified by technique, status quo. Dual-chamber bipolar pacemaker device, unchanged. No new left lung opacities. No change in the osseous structures. IMPRESSION: Increased right pleural effusion. Electronically Signed by Shelton Castro DO 04/16/2020 11:35 A
[2020-04-16] MEDS: ACETAMINOPHEN TAB 650MG DOSE (2X325MG) PO PRN ×2 (02:35→03:17)
[2020-04-16 04:00] VITALS: BP 116/63
--- NOTE | 2020-04-16 04:32 | REP ---
REASON: Dyspnea. COMPARISON: 04/03/2020 CONTRAST: 75 mL Isovue-370. There is no significant change in the appearance of the pulmonary arterial vasculature. No focal filling defects have developed that would be considered consistent with acute pulmonary emboli. There is mediastinal and right hilar adenopathy, status quo. There is a right pleural effusion with consolidation of the right lower lobe, essentially unchanged. There is no pericardial effusion. Evaluation of the lung crowe again shows right lung lower lobe consolidation with air bronchograms. The appearance of this is unchanged. The lung crowe are unchanged. The osseous structures and imaged upper abdomen are unchanged. IMPRESSION: No significant change from the prior exam. There is no evidence of an acute pulmonary embolus. There are chronic lung field changes with a right pleural effusion, as described above. There is unchanged bilateral adrenal gland thickening. There is mediastinal and right hilar adenopathy, which appears unchanged. Electronically Signed by Shelton Castro DO 04/16/2020 11:36 A
--- NOTE | 2020-04-16 04:51 | REP ---
REASON FOR EXAM: Status post thoracotomy tube placement. COMPARISON: Earlier today. The technique utilized in obtaining the radiograph has magnified the cardiac silhouette and accentuated the interstitial markings. Cardiomediastinal silhouette is unchanged. Once again, the heart is magnified by technique. There is mild cardiomegaly, status quo. There is a dual-chamber bipolar pacemaker device, status quo. The increased right pleural effusion seen on the prior exam has decreased. There is a right-sided thoracotomy tube in place along the right lung base. There are no new abnormal opacities. IMPRESSION: Improved effusion. Electronically Signed by Shelton Castro DO 04/16/2020 11:38 A
[2020-04-16] MEDS: KETOROLAC 30 MG/ML 1ML VIAL IV SCH ×4 (05:23→23:18)
[2020-04-16] MEDS: SLF 3 ML SYR IV SCH ×3 (05:23→20:31)
[2020-04-16 06:15] LABS: BASO # 0.1 10^3/uL (0.0-0.2); BASO % 0.6 % (0.0-1.0); EOS # 0.6 10^3/uL (0.0-0.5); EOS % 5.5 % (0.0-3.0); HEMATOCRIT 35.8 % (42.0-52.0); HEMOGLOBIN 10.4 g/dl (13.5-17.5); LYMPH # 1.5 10^3/uL (1.5-5.0); LYMPH % 13.7 % (24.0-44.0); MEAN CORPUSCULAR HEMOGLOBIN 24.9 pg (27.0-33.0); MEAN CORPUSCULAR HGB CONC 29.1 g/dl (32.0-36.5); MEAN CORPUSCULAR VOLUME 85.6 fl (80.0-96.0); MONO # 1.1 10^3/uL (0.0-0.8); MONO % 10.2 % (0.0-5.0); NEUTROPHILS # 7.5 10^3/uL (1.5-8.5); NEUTROPHILS % 69.6 % (36.0-66.0); PLATELET COUNT, AUTOMATED 367 10^3/uL (150-450); RED BLOOD COUNT 4.18 10^6/uL (4.30-6.10); WHITE BLOOD COUNT 10.9 10^3/uL (4.0-10.0)
[2020-04-16 06:38] LABS: BLOOD UREA NITROGEN 19 MG/DL (7-18); CALCIUM LEVEL 9.2 MG/DL (8.8-10.2); CARBON DIOXIDE LEVEL 35 MEQ/L (21-32); CHLORIDE LEVEL 102 MEQ/L (98-107); CREATININE FOR GFR 0.65 MG/DL (0.70-1.30); GLOMERULAR FILTRATION RATE > 60.0 (>49); GLUCOSE, FASTING 38 MG/DL (70-100); POTASSIUM SERUM 4.1 MEQ/L (3.5-5.1); SODIUM LEVEL 141 MEQ/L (136-145)
[2020-04-16] MEDS: HumaLOG INSULIN (NovoLOG) PER UNIT SC SCH ×3 (07:30→17:00)
[2020-04-16 08:00] VITALS: BP 130/89
[2020-04-16] MEDS ORDERED: PANTOPRAZOLE 40MG TAB (PROTONIX) PO SCH (09:00)
--- NOTE | 2020-04-16 09:13 | RO ---
DATE OF PROCEDURE: 04/15/2020 PREPROCEDURE DIAGNOSIS: Recurrent malignant pleural effusion. POSTPROCEDURE DIAGNOSIS: Recurrent malignant pleural effusion PROCEDURE: Insertion of right PleurX catheter. SURGEON: Dr. Armond Rodas MEDICAL BILLING AND CODING SPECIALIST: ANESTHESIA: DESCRIPTION OF PROCEDURE: Under satisfactory moderate sedation achieved with 3 mg of Versed, the patient was prepped and draped in the usual sterile fashion. Entry and exit site were chosen and both were infiltrated with 1% lidocaine. An exploring needle was placed into the right hemithorax with production of sylwia fluid. A guidewire was placed. A tunnel was created between the entry and exit sites after making appropriate incisions. A PleurX catheter was pulled through the subcutaneous tunnel. The wire tract was then dilated and a peel away introducer placed. The PleurX catheter was then placed through the peel away catheter and positioned appropriately. The catheter was secured to the abdominal wall with a #2-0 silk suture and the skin was reapproximated by use of #4-0 Monopril subcuticular suture. 950 mL of fluid was drained before we stopped. The remainder will be drained tomorrow when we teach him the PleurX drainage technique.
[2020-04-16] MEDS: MOM 30ML SUSPENSION UDC PO SCH (09:33)
[2020-04-16] MEDS: NICOTINE 14 MG/24 HR TRANSDERMAL TOP SCH (09:33)
[2020-04-16] MEDS: MAGNESIUM OXIDE 400 MG TAB (MAG-OX) PO SCH (09:34)
[2020-04-16] MEDS: DOCUSATE SODIUM 100 MG CAP PO SCH ×2 (09:34→20:30)
[2020-04-16] MEDS: GLIMEPIRIDE 2 MG TAB PO SCH (09:34)
[2020-04-16] MEDS: APIXABAN 5 MG TAB (ELIQUIS) PO SCH ×2 (09:35→20:30)
[2020-04-16] MEDS: PANTOPRAZOLE 40MG TAB (PROTONIX) PO SCH (09:35)
[2020-04-16] MEDS: FUROSEMIDE 40 MG TAB PO SCH (09:35)
[2020-04-16] MEDS: POTASSIUM CHLORIDE 10 MEQ SR TABLET PO SCH ×2 (09:35→20:30)
[2020-04-16] MEDS: ISOSORBIDE MON. (IMDUR) 30 MG XR TAB PO SCH (09:35)
[2020-04-16] MEDS: METOPROLOL SUCC (TopROL XL) 50MG **XL** TAB PO SCH (09:36)
--- NOTE | 2020-04-16 09:56 | REP ---
REASON: Followup. . COMPARISON: 04/15/2020 at 06:57:04 p.m. Once again, the right basilar opacity has improved. A significant residual persists, however, the cardiomediastinal silhouette is essentially unchanged. The right-sided thoracotomy tube is unchanged. The left lung is clear and stable. The dual-chamber bipolar pacemaker device is unchanged. The osseous structures are unchanged. IMPRESSION: Improved bibasilar opacity but with a persistent residual. Followup is suggested. Electronically Signed by Shelton Castro DO 04/16/2020 11:40 A
--- NOTE | 2020-04-16 10:09 | ER ---
DATE OF CONSULTATION: 04/15/2020 The patient is seen at the request of Dr. Plascencia and the hospitalist service for a recurrent malignant pleural effusion. HISTORY OF PRESENT ILLNESS: The patient is a 64-year-old white male who in February of this year began to become short of breath. He was found to have a large pleural effusion and was transferred to [place]. At [place], he was drained of approximately 1000 mL. He was eventually found to have poorly differentiated neuroendocrine carcinoma. He had another episode of shortness of breath with recurrence of his pleural effusion, and he was drained in x-ray for 1500 mL. In the last 24 hours, he has become more short of breath. He props himself up with three pillows now. He has a cough with white to clear sputum. This has increased over the last 24 hours. There has been no fever, chills, or sweats. He noted swelling in his legs when this first happened in February but denies swelling now. There is no dysphagia. He is due for his first round of chemotherapy tomorrow consisting of carboplatin and etoposide. He sought medical attention in the emergency room (ER) today because of his increasing shortness of breath. CT showed him to have a large pleural effusion. PAST MEDICAL ILLNESSES: Diabetes, hypertension, status post myocardial infarction, atrial fibrillation on Eliquis with a pacemaker. PAST SURGERIES: Ankle surgery and a cataract. Cardiac stent times one. Cholecystectomy. HABITS: He used to smoke a pack a day of [place]. Quit last February. Denies alcohol intake and denies illicit drugs. 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 EXPOSURES: No dogs, birds, or cats at home. No exposures to tuberculosis. TREATMENT HISTORY: One trip to [place] in the remote past. No foreign travel. No travel to the [facility]. REVIEW OF SYSTEMS: CONSTITUTIONAL: See history of present illness (HPI). EYES: Without diplopia. Without amaurosis fugax. Without prior jaundice. NOSE: Without epistaxis. MOUTH: Is edentulous. RESPIRATORY: See HPI. CARDIAC: See HPI. GASTROINTESTINAL (GI): Without nausea, vomiting, diarrhea, constipation, melena, hematochezia, or abdominal pain. GENITOURINARY (): Without hematuria or dysuria or prior renal stones. ENDOCRINE: With diabetes. Without thyroid disease. NEUROLOGICAL: Without paresthesias, paralyses, or prior seizures. PSYCHIATRIC: Without pathological anxieties, depressions, or psychoses. PHYSICAL EXAMINATION: VITAL SIGNS: Temperature is 98.0 with a heart rate of 119-107 in atrial fibrillation with a respiratory rate of 22 without the use of accessory muscles, who is 97% saturated on 2 liters nasal cannula, and whose blood pressure is 137/85. EYES: Pupils equal, round, and reactive to light. Extraocular muscles intact. Sclerae anicteric. NOSE: Without deformity. MOUTH: Shows his mucous membranes to be pink and moist. Lips and commissures without lesions. There is no thrush. He is edentulous. NECK: Is supple. There is no jugular venous distention. No subcutaneous emphysema. Trachea is midline. There is no thyromegaly or lymphadenopathy. He has 2+ carotid upstrokes and without bruits. LUNGS: Show markedly decreased breath sounds on the right side with a dull percussion note at the right lower hemithorax. The left side shows normal vesicular sounds without wheezes, rhonchi, or rales. Percussion note is full to the diaphragm on the left. CARDIAC EXAMINATION: Is without murmurs, click, gallops, or rubs. He has an irregular rate and rhythm. I cannot feel his point of maximal impulse (PMI). S1 and S2 are normal. ABDOMEN: Is soft, nontender. Bowel sounds are positive. There is no hepatomegaly. No costovertebral angle (CVA) tenderness. EXTREMITIES: Show trace pretibial edema. No calf tenderness. No differential swelling of the upper extremities. SKIN: Is warm, dry, and perfused without cyanosis or mottling, including that of the nail beds and the knees. NEUROLOGIC: Shows II-XII intact, along with gross motor and gross sensation intact. Gait is not tested. PSYCHIATRIC: Shows him to be awake and alert, oriented times three with appropriate mood and affect and conversational. His white count today is 10.8 with a hemoglobin and hematocrit of 10.7 and 35.9 with a platelet count of 356. Differential shows 76% neutrophils, 9% lymphocytes, 6% monocytes. There are no immature forms and no toxic granulations. Chemistries today show normal electrolytes except for a marginally high total CO2 of 33. BUN and creatinine are 14 and 0.64 respectively with a glucose of 153 and a calcium of 9.8 with a corresponding albumin of 2.4. Troponin is less than 0.02. Prothrombin time (PT)/international normalized ratio (INR) on 04/03/2020 was 15.0 and 1.21. D-dimer today is 1446. His pleural fluid on 04/04/2020 showed a pH of 7.58 with a glucose of 86 and an LDH of 215. There was no corresponding serum LDH drawn at that time. He had 2200 white cells, 91% were mononuclear lymphocytes, and 8% were polymorphonuclear neutrophils (PMNs). This looks like a probable transudative pleural effusion. His total protein was also not drawn on 04/04/2020, but today's total protein is 6.6, and his total protein on 04/04/2020 in the pleural fluid was 3.9. This makes it a barely exudative effusion. His chest x-ray today shows opacity in the right lower hemithorax. It is done portably, but it is consistent with a pleural effusion. His CT angiography done today confirms the pleural effusion on the right side. It is fairly large. There is a large right lower lobe mass surrounded by the pleural effusion. There is paratracheal lymphadenopathy, as well as subcarinal lymphadenopathy. I do not see a pulmonary embolism. There is no pericardial effusion. He has emphysematous changes throughout. IMPRESSION: 1. Poorly differentiated neuroendocrine tumor, for chemotherapy tomorrow. 2. Recurrent pleural effusion times three. 3. Diabetes. 4. Atrial fibrillation, on Eliquis. 5. Coronary artery disease, status post myocardial infarction in the remote past. 6. Hypertension. 7. Chronic obstructive pulmonary disease (COPD). PLAN AND DISCUSSION: As he is symptomatic, I will place a PleurX catheter, as this is now his third recurrence. Will try and get him out tomorrow for his chemotherapy appointment. I will only drain half of him today and will drain the other half tomorrow so that we can: 1. Teach him. 2. We will obviate postexpansion pulmonary edema. I will send the pleural fluid for all the requisite studies, including hematologies, cytologies, chemistries, and bacteriologies. It should be noted that his pathology on the pleural fluid drawn off on 04/04/2020 did not show malignancy. The diagnosis was made by bronchial washings at [facility]. Lymph node was also aspirated but did not show any evidence of malignancy. The definitive pathology came from a lower lobe biopsy. MTDD
[2020-04-16 12:00] VITALS: BP 138/74
--- NOTE | 2020-04-16 12:57 | HPE ---
DATE OF ADMISSION: 04/15/2020 CHIEF COMPLAINT: Shortness of breath. HISTORY OF PRESENT ILLNESS: This is a 64-year-old male with history of lung cancer, malignant pleural effusion last drained in February 2020 and again in April 2020, presented to the emergency room with two-day history of dyspnea on exertion without fever, cough productive of white sputum, feeling like he has a lot of hiccups and sometimes lingering. The patient has two liters of oxygen continuously and has had to increase it to four liters. Despite nebulizer treatments, he has had no relief. He felt like there was something in his throat that he could not get out. He denied any chest pain, pressure or tightness, lightheadedness or dizziness. No fever or chills. The patient has not left the [facility]. No exposure to anyone with positive COVID. The patient has had limited ambulation and usually is able to go up a flight of 24 steps and two steps into the house but recently he has been a lot more fatigued due to respiratory distress. The patient did have some nausea, felt like his stomach was turning while he was in the emergency room. He had no change in abdominal distension. No change in his lower extremity edema. In the emergency room (ER), he was found to have increased malignant effusion. Dr. Rodas, thoracic surgery, was consulted and placed a PleurX catheter. He is anxious to start chemotherapy tomorrow 04/16/2020 and is to be discharged as early as possible to make his 09:00 a.m. appointment with chemotherapy. He had EKG showing atrial fibrillation with rapid ventricular response (RVR), rate of 91-128, and is on chronic metoprolol 50 mg daily. Hospitalist was asked to admit the patient for worsening malignant pleural effusion requiring a PleurX catheter placement. PAST MEDICAL HISTORY: 1. Chronic atrial fibrillation. 2. Atrioventricular (AV) block requiring a dual-chamber pacemaker. 3. Chronic obstructive pulmonary disease (COPD) secondary to tobacco abuse. 4. Coronary artery disease (CAD) and coronary artery stent. 5. Hypertension. 6. Diabetes. 7. Dyslipidemia. 8. Obstructive sleep apnea. 9. Metabolic syndrome. 10. 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 PAST SURGICAL HISTORY: 1. Dual-chamber pacemaker for atrioventricular (AV) block. 2. Cholecystectomy. 3. Resection of skin cancer. 4. Shoulder surgery. 5. Drainage of a tibial abscess. HOME MEDICATIONS: - acetaminophen 1 gram every six hours as needed - Trelegy Ellipta one puff daily - Victoza 1.2 mg subcutaneous daily - ramipril 2.5 mg daily - Eliquis 5 mg twice a day - Cardizem 60 mg three times a day - Lasix 40 daily - glimepiride 4 mg daily - hydrocodone/acetaminophen 7.5/325 one tablet every four hours as needed - Lantus insulin 40 units subcutaneous at bedtime - ipratropium albuterol nebulizer three times a day as needed - isosorbide 30 mg daily - magnesium oxide 400 daily - metoprolol 50 daily - nicotine patch 14 mg daily - Zofran 8 mg as needed - Protonix 40 daily - potassium 10 mEq twice a day - prochlorperazine 10 mg every eight hours as needed - simvastatin 40 at bedtime ALLERGIES: PENICILLIN. SOCIAL HISTORY: The patient smoked cigarettes, quit in February 2020, previously smoked 45-pack years. Quit alcohol use 18 years ago. Worked in construction. Healthcare proxy is his daughter, Tg Sutherland, . The patient says that he wants cardiopulmonary resuscitation (CPR) but no intubation. FAMILY HISTORY: Brother one year older with colon cancer. Another brother with diabetes. Father age 57 with alcoholic liver cirrhosis. Mother age 47 with coronary artery disease (CAD), myocardial infarction ([place]). Two other brothers are alive. One sister with lung cancer, recently . REVIEW OF SYSTEMS: Per history of present illness (HPI), 12-point system otherwise negative. PHYSICAL EXAMINATION: Temperature 98, pulse 105, respiratory rate 19, blood pressure 174/98, 98% on room air. GENERAL: The patient is awake, alert, oriented to person, place and time, answering questions appropriately. The patient appears slightly disheveled, positive conversational dyspnea, unable to complete 6-7 word sentences, positive use of respiratory accessory muscles. No nasal flaring or tracheal deviation. The patient has no jugular venous distention (JVD). No thyromegaly or cervical lymphadenopathy. Moist mucous membranes. HEART: S1, S2, irregularly irregular and tachycardic. No murmurs, rubs, or gallops. LUNGS: Diminished breath sounds, crackles bilaterally, coarse rhonchi. No wheezing. Dullness to percussion at the bases bilaterally. ABDOMEN: Soft, obese, nontender, nondistended. No hepatosplenomegaly. No rebound or guarding. No abdominal bruit. EXTREMITIES: No clubbing or cyanosis. EKG: Atrial fibrillation, ventricular rate of 91, chronic right bundle branch block. IMAGING STUDIES: Venous Doppler of the lower extremity: No evidence of DVT of bilateral lower extremities. CT chest angiogram: No official report. 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 PleurX catheter has been placed. IMPRESSION: 1. 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 Positron emission tomography (PET) scan could not be obtained but he is to start carboplatin BATCH AND FURNACE MANAGER-16 every three weeks starting on 04/16/2020. PleurX catheter had been placed by Dr. Armond Rodas. No acute signs of infection. The patient is afebrile, white count of 10.8 thought to be due to malignancy and reactive and inflammatory. The patient otherwise appeared stable, on room air was saturating 96% to 98% after the PleurX catheter had been placed. The patient denied any chest pain or pressure. Troponin was less than 0.02. EKG did not show any acute ischemia. 2. Atrial fibrillation with rapid ventricular response (RVR). The patient is resumed back on his home dose of metoprolol and Cardizem. Rate was 91 on arrival but within a few was uncontrolled at 128-130. His home medications have been restarted and hopefully he can be rate controlled by the morning. He is resumed back on his home dose of anticoagulation, Eliquis 5 mg twice a day. We are continuing the Cardizem 60 mg three times a day, metoprolol 50 mg daily for rate control. 3. Chronic obstructive pulmonary disease (COPD). No acute exacerbation. No wheezing found on examination. The patient has stopped his tobacco use. Nicotine patch 14 mg daily. 4. Type 2 diabetes, on sliding scale, consistent-carbohydrate diet. 5. Hyperlipidemia, on chronic Zocor. 6. History of coronary artery disease (CAD), myocardial infarction ([place]). Troponin is negative. EKG has no acute ST-T wave changes. 7. Hypertension. Resumed on his home dose of metoprolol and diltiazem, isosorbide for better control, and Lasix. 8. History of obstructive sleep apnea. May resume home continuous positive airway pressure (CPAP) at home settings. 9. Dyslipidemia. May continue the patient's Zocor. 10. Reflux. Continue on Protonix. 11. History of atrioventricular (AV) block, chronic atrial fibrillation, and pacemaker. Currently on rate control medications for atrial fibrillation and pacemaker for backup. Paced rhythm on EKG. CODE STATUS: The patient requests cardiopulmonary resuscitation (CPR) but no intubation. The patient's healthcare proxy is his daughter, Antonina Sutherland, . DISPOSITION: Per Dr. Armond Rodas, the patient is to be discharged before 08:00 a.m. tomorrow in order to make his 09:00 a.m. appointment for chemotherapy at the [facility].
--- NOTE | 2020-04-16 13:57 | IPN ---
DATE OF SERVICE: 04/16/2020 I was hoping to get Mr. Carlisle out of the hospital today on time for his chemotherapy appointment. I had him admitted last night and placed an urgent PleurX catheter. He drained a liter yesterday and 900 mL today. Today, he awoke sweating, and his glucose was found to be 38. He did not feel well. He was drained and taught how to use a drain. However, he wanted his daughter to come in and also observe the teaching. Therefore, he is not ready to leave today. The whole idea of getting him in and ready for his chemotherapy was, therefore, obviated. Today by the time of examination at about 9:30, he is feeling well. He is no longer sweaty. He is breathing well. His pain is being well controlled at the PleurX insertion site. His vital signs show a maximum temperature (Tmax) of 98.6 yesterday with a heart rate that ranges between 80 and 118 in atrial fibrillation with a respiratory rate of 24-22 without the use of accessory muscles, who is 98% saturated on 2 liters nasal cannula, and whose blood pressure is ranging between 116/63 to 156/78. His intake and output over the past 24 hours has been recorded as 925 out and nothing in. Today again, there is no intake recorded. Weight today is 104.7 kg compared to 102.2 kg yesterday. On physical examination, he has decreased breath sounds on the right side. Percussion note, however, is full to the diaphragm as far as I can tell through his obesity. His left side does not show wheezes, rhonchi, or rales. Percussion note is full to the diaphragm on the left. CARDIAC EXAMINATION: Is without murmurs, clicks, gallops, or rubs. I cannot feel his point of maximal impulse (PMI). S1 and S2 are normal. ABDOMEN: Is soft, nontender. Bowel sounds are positive. There is no hepatomegaly. No costovertebral angle (CVA) tenderness. EXTREMITIES: Show trace pretibial edema. No calf tenderness. No differential swelling of the upper extremities. SKIN: Is warm, dry, and perfused without cyanosis or mottling, including that of the nail beds and the knees. NECK: Is supple. There is no jugular venous distention, no subcutaneous emphysema. Trachea is midline. MOUTH: Shows his mucous membranes to be pink and moist. Lips and commissures without lesions. There is no thrush. EYES: Show his pupils to be equal and reactive. Extraocular motors intact. Sclerae anicteric. NEUROLOGIC: Shows II-XII intact, along with gross motor and gross sensation intact. Gait is not tested. PSYCHIATRIC: Shows him to be awake and alert, oriented times three with appropriate mood and affect and conversational. His chemistries today show normal electrolytes except for a marginally high total CO2 of 35. BUN and creatinine are 19 and 0.65 respectively with a calcium of 9.2. Glucose, as noted above, is 38. Since then, his fingerstick glucoses at 7:22 were 122. His white count today is 10.9 with a hemoglobin and hematocrit of 10.4 and 35.8 essentially unchanged from yesterday with a platelet count of 367. Differential shows 69% neutrophils, 13% lymphocytes, 10% monocytes. There are no immature forms and no toxic granulations. His pleural fluid has been returned with a pH of 7.58 with a glucose of 138 and an LDH of 213. His corresponding LDH is 143, making this mildly exudative. He has 1800 white cells, 94% of which are lymphocytes and mononuclears and 5% are neutrophils. It, therefore, looks like a mildly exudative lymphocytic pleural effusion, which is suspect is going to returns clerk to be malignant. Pathology is still pending. IMPRESSION: 1. Poorly differentiated neuroendocrine tumor, scheduled for chemotherapy today. 2. Recurrent pleural effusion times three. 3. Diabetes. 4. Atrial fibrillation, on Eliquis. 5. Coronary artery disease, status post myocardial infarction in the remote past. 6. Hypertension. 7. Chronic obstructive pulmonary disease (COPD). PLAN AND DISCUSSION: He can be discharged at any time after his teaching and after the medical service feels comfortable with his discharge. Again, I am disappointed that he was not able to make his chemotherapy appointment today. He should drain himself every 2 days or if and when he gets symptomatic. He will return to see me in 10 days with a chest x-ray, at which time I will remove his sutures. I have already filled out his paperwork for delivery of his bottles.
[2020-04-16 16:00] VITALS: BP 134/77
--- NOTE | 2020-04-16 16:44 | IPNPDOC ---
Date Seen The patient was seen on 04/16/20. Progress Note SUBJECTIVE: Tremulous and diaphoretic overnight and againt his AM. Hypoglycemic with BS 38 this AM, improved with treatment. patient did not eat well 04/15/20 but had been getting home insulin and sliding scale coverage and this is likely the cause. Decreased HS levemir, stopped HS coverage with ISS. Was to discharge this AM after improvement of blood sugars; however, patient did not feel comfortable being discharge with little training of how to drain the PleurX and wished to have more training. Denies chest pain, n/v/d, shortness of breath. OBJECTIVE: VITAL SIGNS: Please see below PHYSICAL EXAMINATION: CONSTITUTIONAL: No acute distress, resting comfortably, AAO x 3 EYES: PERRLA, EOM intact HENT, MOUTH: Normocephalic, atraumatic, moist mucous membranes, nasal cannula in place NECK: SUPPLE, no JVD, no lymphadenopathy, no carotid bruit CV: Regular rate and rhythm, S1S2 normal, no murmurs/rubs/gallops RESPIRATORY: Decreased breath sounds on R>L, crackles in bilateral lower lung bases. No rales/rhonchi/wheezes GI: PleurX catheter in right abdominal wall, appears clean, slightly senstive to touch. BS positive in 4 quadrants, soft, nontender, nondistended, no rebound or guarding, no organomegaly : Deferred MUSCULOSKELETAL: Normal ROM. No cyanosis, clubbing, swelling, joint deformity, extremity edema INTEGUMENTARY: Intact, no rashes, no lesions, no erythema NEUROLOGIC: Cranial Nerves II-XII are intact, no focal deficits PSYCHIATRIC: Mood and affect are normal CURRENT MEDICATIONS: Please see below LABORATORY DATA: Please see below IMAGING: CXR: Improved bibasilar opacity but with a persistent residual. Followup is suggested. 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 PLAN: 1. 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 -Currently on 2-4 L NC, saturating well. PleurX in place, mild tenderness -Pleural fluid: likely mildly exudative lymphocytic pleural effusion, likely malignant -C/w treatment by heme/onc -Instructions are to drain PleurX every 2 days or if and when he gets symp tomatic -To f/u with Dr. Rodas 10 days after discharge in office, repeat CXR at that time. 2. Hypoglycemia likely 2/2 to poor PO intake with continuation of insulins -Hx of DM type II -BS 38 this AM, symptomatic throughout the evening -Decreased HS levemir to 15 UHS from 40 U. Stopped HS ISS coverage -Monitor closely, hypoglycemic protocol in place 3. Stage IV poorly differentiated neuroendocrine tumor of the right lung -Missed appt today but rescheduled -PET scan could not be obtained -Scheduled to start carboplatin MECHANICAL ADJUSTER-16 every three weeks -To f/u with heme/onc 04/18/20 after discharge 4. Atrial fibrillation, resolved RVR -Rate controlled -C/w home BB, CCB, eliquis 5. Chronic obstructive pulmonary disease (COPD). -No acute exacerbation, smoker -On home O2 -levalbuterol PRN and ATC 6. Hyperlipidemia - Zocor. 7. History of coronary artery disease (CAD), myocardial infarction ([place]) -Denies chest pain, n/v, diaphoresis -C/w home meds 8. Hypertension. -Stable -C/w home metoprolol and diltiazem, isosorbide and Lasix. 9. History of obstructive sleep apnea. -CPAP with home settings. 10. Reflux -PPI 11. History of atrioventricular (AV) block, chronic atrial fibrillation, and pacemaker. -Currently rate controlled. -C/w meds above -Paced rhythm on EKG. 12. DVT px. -Eliquis DISPOSITION: Currently inpatient status. Plan is discharge in the AM with f/u with PCP, thoracic surgery and heme/onc . VS, I&O, 24H, Fishbone Vital Signs/I&O Vital Signs Date Time Temp Pulse Resp B/P (MAP) Pulse Ox O2 Delivery O2 Flow Rate FiO2 04/16/20 12:00 2.0 04/16/20 12:00 97.3 74 18 138/74 (95) 99 Nasal Cannula I&O- Last 24 Hours up to 6 AM 04/16/20 05:59 Intake Total 0 ml Output Total 1375 ml Balance -1375 ml Laboratory Data 24H LABS Laboratory Tests 2 04/15/20 19:08: Body Fluid pH 7.580, Body Fluid pH Source PLEURAL, Body Fluid WBC (Auto) 1810H, Body Fluid RBC (Auto) 10, Body Fluid Mononuclear Cells % Auto 94.4H, Fluid Polymorphonuclear Cell % Auto 5.6H, Body Fluid Glucose Source PLEURAL, Body Fluid Glucose 138, Body Fluid Protein Source PLEURAL, Body Fluid Total Protein 3.2, Body Fluid Albumin Source PLEURAL, Body Fluid Albumin 1.4, Body Fluid LDH Source PLEURAL, Body Fluid Lactate Dehydrogenase 213, Body Fluid Amylase Source PLEURAL, Body Fluid Amylase 53, Body Fluid Cholesterol < 50, Body Fluid Cholesterol Source PLEURAL, Body Fluid Triglyceride Source PLEURAL, Body Fluid Triglycerides 16, Pleural Fluid Source PLEURAL, Pleural Fluid Color YELLOW, Pleural Fluid Appearance CLOUDY 04/15/20 20:13: Bedside Glucose (Misc Panel) 151H 04/16/20 05:25: Immature Granulocyte % (Auto) 0.4, Neutrophils (%) (Auto) 69.6H, Lymphocytes (%) (Auto) 13.7L, Monocytes (%) (Auto) 10.2H, Eosinophils (%) (Auto) 5.5H, Basophils (%) (Auto) 0.6, Neutrophils # (Auto) 7.5, Lymphocytes # (Auto) 1.5, Monocytes # (Auto) 1.1H, Eosinophils # (Auto) 0.6H, Basophils # (Auto) 0.1, Nucleated Red Blood Cells % (auto) 0.0, Anion Gap 4L, Glomerular Filtration Rate > 60.0, Calcium Level 9.2 04/16/20 06:39: Bedside Glucose (Misc Panel) 36*L 04/16/20 06:56: Bedside Glucose (Misc Panel) 51L 04/16/20 07:22: Bedside Glucose (Misc Panel) 122H 04/16/20 11:38: Bedside Glucose (Misc Panel) 178H CBC/BMP Laboratory Tests 04/16/20 05:25 Microbiology Microbiology 04/15/20 Acid Fast Stain, Received Pending 04/15/20 Mycobacterial Culture, Received Pending 04/15/20 Fungal Smear, Received Pending 04/15/20 Fungal Culture, Received Pending 04/15/20 Gram Stain - Final, Resulted 04/15/20 Body Fluid Culture, Resulted Pending 04/15/20 Anaerobic Culture, Resulted Pending 04/15/20 Respiratory Virus Panel (PCR) (VENKATESH) - Final, Complete 04/15/20 Blood Culture - Preliminary, Resulted No growth after 24 hours . All specim... 04/15/20 Blood Culture - Preliminary, Resulted No growth after 24 hours . All specim... Current Medications Current Medications Medications (Trade) Dose Ordered Sig/Domenico Route PRN Reason Start Time Stop Time Status Last Admin Dose Admin Acetaminophen (Tylenol Tab) 650 mg Q6HP PRN PO T > 101.5 or MATTHEWS 04/15/20 17:30 04/16/20 02:35 Acetaminophen/ Hydrocodone Bitart (Anexsia, [place] 7.5mg/325mg) 1 tab Q4H PRN PO PAIN 04/15/20 20:15 Acetaminophen/ Hydrocodone Bitart ([place], Anexsia 5/325) 1 tab Q3H PRN PO MILD PAIN (PS 1-4) 04/15/20 17:30 Albuterol/ Ipratropium (Duoneb (Ipr 0.5mg/Alb 2.5mg)) 3 ml TID PRN NEB SHORTNESS OF BREATH 04/15/20 20:15 Apixaban (Eliquis) 5 mg BID PO 04/15/20 21:00 04/16/20 09:35 Bisacodyl (Dulcolax Suppository) 10 mg Q4HP PRN MI CONSTIPATION 04/15/20 17:30 Dextrose (Dextrose 50%) 25 ml ASDIRECTED PRN IV SEE LABEL COMMENTS 04/15/20 20:30 04/16/20 07:02 Diltiazem HCl (Cardizem) 60 mg TID PO 04/15/20 21:00 04/16/20 09:35 Docusate Sodium (Colace) 100 mg BID PO 04/15/20 21:00 04/16/20 09:34 Furosemide (Lasix) 40 mg DAILY PO 04/16/20 09:00 04/16/20 09:35 Glimepiride (Amaryl) 4 mg DAILY@0730 PO 04/16/20 07:30 04/16/20 09:34 Glucagon (Glucagon) 1 mg ASDIRECTED PRN SC SEE LABEL COMMENTS 04/15/20 20:30 Glucose (Glucose) 16 GM ASDIRECTED PRN PO SEE LABEL COMMENTS 04/15/20 20:30 Home Med (Med Rec Complete!) ASDIRECTED XX 04/15/20 18:00 04/15/20 17:49 DC Insulin Detemir (Levemir Insulin) 15 units QHS [place] 04/16/20 21:00 Insulin Detemir (Levemir Insulin) 40 units QHS [place] 04/15/20 21:00 04/16/20 07:46 DC 04/15/20 20:46 Insulin Human Lispro (HumaLOG INSULIN) SEE PROTOCOL TABLE AC [place] 04/16/20 07:30 04/16/20 12:30 Insulin Human Lispro (HumaLOG INSULIN) [facility] 04/15/20 21:00 04/16/20 07:44 DC Isosorbide Mononitrate (Imdur) 30 mg DAILY PO 04/16/20 09:00 04/16/20 09:35 Ketorolac Tromethamine (ToRADol) 30 mg Q6H IV 04/15/20 18:00 04/20/20 17:59 04/16/20 12:31 Levalbuterol HCl (Xopenex Neb) 1.25 mg Q2HP PRN NEB WHEEZING 04/15/20 17:30 Levalbuterol HCl (Xopenex Neb) 1.25 mg RQ6H NEB 04/15/20 20:00 04/16/20 13:21 Magnesium Hydroxide (Milk Of Magnesia) 30 ml DAILY PO 04/16/20 09:00 04/16/20 09:33 Magnesium Oxide (Mag-Ox) 400 mg DAILY PO 04/16/20 09:00 04/16/20 09:34 Metoprolol Succinate (TopROL XL) 50 mg DAILY PO 04/16/20 09:00 04/16/20 09:36 Nicotine (Nicoderm Cq 14mg) 1 patch DAILY TOP 04/16/20 09:00 04/16/20 09:33 Ondansetron HCl (ZOFRAN INJection) 4 mg Q4HP PRN IV NAUSEA 04/15/20 17:30 Ondansetron HCl (Zofran) 8 mg Q8H PRN PO NAUSEA 04/15/20 20:15 Oxycodone/ Acetaminophen (Percocet 5mg/ 325mg Tablet) 1 tab Q4H PRN PO MODERATE PAIN (PS 5-7) 04/15/20 17:30 Oxycodone/ Acetaminophen (Percocet 5mg/ 325mg Tablet) 2 tab Q4H PRN PO SEVERE PAIN (PS 8-10) 04/15/20 17:30 Pantoprazole Sodium (Protonix) 40 mg DAILY PO 04/16/20 09:00 04/15/20 20:12 DC Pantoprazole Sodium (Protonix) 40 mg DAILY PO 04/16/20 09:00 04/16/20 09:35 Potassium Chloride/Dextrose/ Sod Cl 1,000 ml @ 75 mls/hr [id number] IV 04/15/20 17:23 Cancel Potassium Chloride (Micro-K Extencaps) 10 meq BID PO 04/15/20 21:00 04/16/20 09:35 Prochlorperazine (Compazine) 10 mg Q8H PRN PO NAUSEA 04/15/20 20:15 Simvastatin (Zocor) 40 mg QHS PO 04/15/20 21:00 04/15/20 20:44 Sodium Chloride (Saline Lock Flush) 2 ml ASDIRECTED PRN IV SEE LABEL COMMENTS 04/15/20 23:15 Sodium Chloride (Saline Lock Flush) 2 ml SLF IV 04/16/20 06:00 04/16/20 14:46 Allergies Coded Allergies: Penicillins (Verified Allergy, Unknown, HIVES, 04/03/20) Sruthi Berrios MD Apr 16, 2020 16:44
[2020-04-16 20:00] VITALS: BP 140/70
[2020-04-16] MEDS: SIMVASTATIN 40 MG TAB PO SCH (20:30)
[2020-04-16] MEDS ORDERED: LEVEMIR (INSULIN DETEMIR) 1 UNITS/0.01ML SC SCH (21:00)
[2020-04-16] MEDS: ANEXSIA, NORCO 7.5MG/325MG TABLET(HYDROCODONE/APAP) PO PRN (23:22)
[2020-04-17] VITALS: BP 132/90
[2020-04-17] MEDS: LEVALBUTEROL 1.25 MG/0.5 ML CONCENTRATE NEB NEB SCH ×2 (01:40→07:17)
[2020-04-17 04:00] VITALS: BP 136/79
[2020-04-17] MEDS: ANEXSIA, NORCO 7.5MG/325MG TABLET(HYDROCODONE/APAP) PO PRN ×2 (04:08→11:24)
[2020-04-17 05:41] LABS: BASO # 0.1 10^3/uL (0.0-0.2); BASO % 0.5 % (0.0-1.0); EOS # 0.6 10^3/uL (0.0-0.5); EOS % 5.8 % (0.0-3.0); HEMATOCRIT 31.6 % (42.0-52.0); HEMOGLOBIN 9.5 g/dl (13.5-17.5); LYMPH % 9.9 % (24.0-44.0); MEAN CORPUSCULAR HEMOGLOBIN 25.5 pg (27.0-33.0); MEAN CORPUSCULAR HGB CONC 30.1 g/dl (32.0-36.5); MEAN CORPUSCULAR VOLUME 84.7 fl (80.0-96.0); MONO # 0.7 10^3/uL (0.0-0.8); MONO % 7.2 % (0.0-5.0); NEUTROPHILS # 7.6 10^3/uL (1.5-8.5); NEUTROPHILS % 76.1 % (36.0-66.0); PLATELET COUNT, AUTOMATED 284 10^3/uL (150-450); RED BLOOD COUNT 3.73 10^6/uL (4.30-6.10)
[2020-04-17] MEDS: KETOROLAC 30 MG/ML 1ML VIAL IV SCH ×2 (05:49→11:34)
[2020-04-17] MEDS: SLF 3 ML SYR IV SCH (05:49)
[2020-04-17 06:03] LABS: BLOOD UREA NITROGEN 21 MG/DL (7-18); CALCIUM LEVEL 8.7 MG/DL (8.8-10.2); CARBON DIOXIDE LEVEL 32 MEQ/L (21-32); CHLORIDE LEVEL 99 MEQ/L (98-107); CREATININE FOR GFR 0.61 MG/DL (0.70-1.30); GLOMERULAR FILTRATION RATE > 60.0 (>49); GLUCOSE, FASTING 239 MG/DL (70-100); POTASSIUM SERUM 4.8 MEQ/L (3.5-5.1); SODIUM LEVEL 137 MEQ/L (136-145)
[2020-04-17 08:00] VITALS: BP 151/71
[2020-04-17] MEDS: HumaLOG INSULIN (NovoLOG) PER UNIT SC SCH ×2 (08:16→11:34)
[2020-04-17] MEDS: MAGNESIUM OXIDE 400 MG TAB (MAG-OX) PO SCH (08:17)
[2020-04-17] MEDS: NICOTINE 14 MG/24 HR TRANSDERMAL TOP SCH (08:17)
[2020-04-17] MEDS: FUROSEMIDE 40 MG TAB PO SCH (08:17)
[2020-04-17] MEDS: GLIMEPIRIDE 2 MG TAB PO SCH (08:17)
[2020-04-17] MEDS: DOCUSATE SODIUM 100 MG CAP PO SCH (08:17)
[2020-04-17 08:18] VITALS: BP 151/71
[2020-04-17] MEDS: POTASSIUM CHLORIDE 10 MEQ SR TABLET PO SCH (08:18)
[2020-04-17] MEDS: APIXABAN 5 MG TAB (ELIQUIS) PO SCH (08:18)
[2020-04-17] MEDS: METOPROLOL SUCC (TopROL XL) 50MG **XL** TAB PO SCH (08:18)
[2020-04-17] MEDS: PANTOPRAZOLE 40MG TAB (PROTONIX) PO SCH (08:18)
[2020-04-17] MEDS: ISOSORBIDE MON. (IMDUR) 30 MG XR TAB PO SCH (08:19)
[2020-04-17] MEDS: MOM 30ML SUSPENSION UDC PO SCH (08:19)
--- NOTE | 2020-04-17 11:10 | REP ---
REASON: Followup pleural effusion. COMPARISON: Yesterday. The cardiomediastinal silhouette is unchanged. Dual chamber bipolar pacemaker on the right status quo. Patchy right basilar opacity status quo. No new abnormal opacities have developed. No change in the osseous structures. IMPRESSION: No significant change. Electronically Signed by Shelton Castro DO 04/17/2020 12:55 P
--- NOTE | 2020-04-17 15:16 | DS.PDOC ---
Discharge Summary General Date of Admission Apr 15, 2020 at 17:23 Date of Discharge 04/17/20 Attending Physician: Sruthi Berrios MD Discharge Summary HISTORY OF PRESENT ILLNESS: Patient is a 64-year-old male with history of lung cancer, malignant pleural effusion last drained in February 2020 and again in April 2020, presented to the emergency room with two-day history of dyspnea on exertion without fever, cough productive of white sputum, feeling like he has a lot of hiccups and sometimes lingering. The patient has two liters of oxygen continuously and has had to increase it to four liters. Despite nebulizer treatments, he has had no relief. He felt like there was something in his throat that he could not get out. He denied any chest pain, pressure or tightness, lightheadedness or dizziness. No fever or chills. The patient has not left the [facility]. No exposure to anyone with positive COVID. The patient has had limited ambulation and usually is able to go up a flight of 24 steps and two steps into the house but recently he has been a lot more fatigued due to respiratory distress. The patient did have some nausea, felt like his stomach was turning while he was in the emergency room. He had no change in abdominal distension. No change in his lower extremity edema. In the emergency room (ER), he was found to have increased malignant effusion. Dr. Rodas, thoracic surgery, was consulted and placed a PleurX catheter. He is anxious to start chemotherapy tomorrow 04/16/2020 and is to be discharged as early as possible to make his 09:00 a.m. appointment with chemotherapy. He had EKG showing atrial fibrillation with rapid ventricular response (RVR), rate of 91-128, and is on chronic metoprolol 50 mg daily. Hospitalist was asked to admit the patient for worsening malignant pleural effusion requiring a PleurX catheter placement. HOSPITAL COURSE: Upon placement of PleurX catheter, he drained a liter 04/15/20 and 900 mL04/16/20. Breathing improved and incision site where catheter was placed appeared clean Pleural fluid studies showed mildly excudative and lymphocytic, likely malignant. The AM of 04/16/20, the patient states that he woke up sweating, and his glucose was found to be 38. He was treated according and BS improved greatly. His insulin treatment was decreased, HS sliding scale with humalog was stopped. His blood sugars were observed during the day of 04/16 and over the night into 04/17. He was eating and drinking well, had no other episodes of hypoglycemia. His blood sugars were as high as high as 266 with the lower dose levemir HS. He was drained and taught how to use a drain. However, he wanted his daughter to come in and also observe the teaching which occurred. He was discharged the AM of 04/17/20 in improved condition on home medications. He has follow up with Dr. Rodas (thoracic surgery) 10 days after discharge. He is to drain the catheter as instructed. He also has f/u with heme/onc on 04/18/20 and PCP as scheduled. He denies chest pain, shortness of breath, n/v/d, fevers or chills. PAST MEDICAL HISTORY: 1. Chronic atrial fibrillation. 2. Atrioventricular (AV) block requiring a dual-chamber pacemaker. 3. Chronic obstructive pulmonary disease (COPD) secondary to tobacco abuse. 4. Coronary artery disease (CAD) and coronary artery stent. 5. Hypertension. 6. Diabetes. 7. Dyslipidemia. 8. Obstructive sleep apnea. 9. Metabolic syndrome. 10. 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 PAST SURGICAL HISTORY: 1. Dual-chamber pacemaker for atrioventricular (AV) block. 2. Cholecystectomy. 3. Resection of skin cancer. 4. Shoulder surgery. 5. Drainage of a tibial abscess. ALLERGIES: PENICILLIN. SOCIAL HISTORY: The patient smoked cigarettes, quit in February 2020, previously smoked 45-pack years. Quit alcohol use 18 years ago. Worked in construction. Healthcare proxy is his daughter, Tg Sutherland, . The patient says that he wants cardiopulmonary resuscitation (CPR) but no intubation. FAMILY HISTORY: Brother one year older with colon cancer. Another brother with diabetes. Father age 57 with alcoholic liver cirrhosis. Mother age 47 with coronary artery disease (CAD), myocardial infarction ([place]). Two other brothers are alive. One sister with lung cancer, recently . DISCHARGE MEDICATIONS: Please see below PHYSICAL EXAMINATION: VS: Please see below CONSTITUTIONAL: No acute distress, resting comfortably, AAO x 3 EYES: PERRLA, EOM intact HENT, MOUTH: Normocephalic, atraumatic, moist mucous membranes, nasal cannula in place NECK: SUPPLE, no JVD, no lymphadenopathy, no carotid bruit CV: Regular rate and rhythm, S1S2 normal, no murmurs/rubs/gallops RESPIRATORY: Decreased breath sounds on R>L, crackles in bilateral lower lung bases. No rales/rhonchi/wheezes GI: PleurX catheter in right abdominal wall, appears clean, slightly sensitive to touch. BS positive in 4 quadrants, soft, nontender, nondistended, no rebound or guarding, no organomegaly : Deferred MUSCULOSKELETAL: Normal ROM. No cyanosis, clubbing, swelling, joint deformity, extremity edema INTEGUMENTARY: Intact, no rashes, no lesions, no erythema NEUROLOGIC: Cranial Nerves II-XII are intact, no focal deficits PSYCHIATRIC: Mood and affect are normal LABORATORY DATA: Please see below IMAGING: CXR: Improved bibasilar opacity but with a persistent residual. 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 PLAN: 1. 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 -Currently on 2-4 L NC, saturating well. PleurX in place, mild tenderness -Pleural fluid: likely mildly exudative lymphocytic pleural effusion, likely malignant -C/w treatment by heme/onc for right lung CA -Instructions are to drain PleurX every 2 days or if and when he gets symptoma tic -To f/u with Dr. Rodas 10 days after discharge in office, repeat CXR at that time. 2. Hypoglycemia likely 2/2 to poor PO intake with continuation of insulins. Resolved -Hx of DM type II -Eating and drinking well -BS >200 throughout 04/16/20 and this AM. -C/w with home insulin dose and f/u with PCP. 3. 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 Atrial fibrillation, resolved RVR -Rate controlled -C/w home BB, CCB, eliquis 5. Chronic obstructive pulmonary disease (COPD). -No acute exacerbation, smoker -On home O2 -C/w home meds 6. Hyperlipidemia - Zocor. 7. History of coronary artery disease (CAD), myocardial infarction ([place]) -Denies chest pain, n/v, diaphoresis -C/w home meds 8. Hypertension. -Stable -C/w home metoprolol and diltiazem, isosorbide and Lasix. 9. History of obstructive sleep apnea. -CPAP with home settings. 10. Reflux -PPI 11. History of atrioventricular (AV) block, chronic atrial fibrillation, and pacemaker. -Currently rate controlled. -C/w meds above -Paced rhythm on EKG. DISPOSITION: Discharged today with f/u scheduled for PCP, thoracic surgery and heme/onc . TIME SPENT ON DISCHARGE: Greater than 30 minutes. Vital Signs/I&Os Vital Signs Date Time Temp Pulse Resp B/P (MAP) Pulse Ox O2 Delivery O2 Flow Rate FiO2 04/17/20 11:54 20 Nasal Cannula 2.0 04/17/20 08:19 80 04/17/20 08:18 151/71 04/17/20 08:00 98.2 100 l I&O- Last 24 Hours up to 6 AM 04/17/20 06:00 Intake Total 1830 ml Output Total 2125 ml Balance -295 ml Laboratory Data Labs 24H Laboratory Tests 2 04/16/20 16:47: Bedside Glucose (Misc Panel) 210H 04/16/20 20:15: Bedside Glucose (Misc Panel) 266H 04/17/20 05:18: Immature Granulocyte % (Auto) 0.5, Neutrophils (%) (Auto) 76.1H, Lymphocytes (%) (Auto) 9.9L, Monocytes (%) (Auto) 7.2H, Eosinophils (%) (Auto) 5.8H, Basophils (%) (Auto) 0.5, Neutrophils # (Auto) 7.6, Lymphocytes # (Auto) 1.0L, Monocytes # (Auto) 0.7, Eosinophils # (Auto) 0.6H, Basophils # (Auto) 0.1, Nucleated Red Blood Cells % (auto) 0.0, Anion Gap 6L, Glomerular Filtration Rate > 60.0, Calcium Level 8.7L 04/17/20 11:28: Bedside Glucose (Misc Panel) 180H CBC/BMP Laboratory Tests 04/17/20 05:18 FSBS Laboratory Tests Test 04/16/20 16:47 04/16/20 20:15 04/17/20 11:28 Range/Units Bedside Glucose (Misc Panel) 210 266 180 80-115 MG/DL Microbiology Microbiology 04/15/20 Acid Fast Stain, Received Pending 04/15/20 Mycobacterial Culture, Received Pending 04/15/20 Fungal Smear, Received Pending 04/15/20 Fungal Culture, Received Pending 04/15/20 Gram Stain - Final, Complete 04/15/20 Body Fluid Culture - Final, Complete 04/15/20 Anaerobic Culture - Final, Complete 04/15/20 Respiratory Virus Panel (PCR) (VENKATES[facility]) - Final, Complete 04/15/20 Blood Culture - Preliminary, Resulted No Growth after 48 hours. All Specime... 04/15/20 Blood Culture - Preliminary, Resulted No Growth after 48 hours. All Specime... Discharge Medications Scheduled Apixaban (Eliquis) 5 Mg Tablet, 5 MG PO BID, (Reported) Diltiazem Hcl (Cardizem) 60 Mg Tablet, 60 MG PO TID, (Reported) Fluticasone/Umeclidin/Vilanter (Trelegy Ellipta 100-62.5-25) 1 Each Blst.w.dev, 1 PUFF PO DAILY, (Reported) Furosemide (Furosemide) 40 Mg Tablet, 40 MG PO DAILY, (Reported) Glimepiride (Glimepiride) 4 Mg Tablet, 4 MG PO DAILY, (Reported) Insulin Glargine (Lantus) 100 Unit/1 Ml Vial, 40 UNITS SC QHS, (Reported) Isosorbide Mononitrate (Isosorbide Mononitrate ER) 30 Mg Tab.er.24h, 30 MG PO DAILY, (Reported) Liraglutide (Victoza 2-Sg) 0.6 Mg/0.1 Ml Pen.injctr, 1.2 MG SC DAILY, (Reported) Magnesium Oxide (Magnesium Oxide) 400 Mg Tablet, 400 MG PO DAILY, (Reported) Metoprolol Succinate (Metoprolol Succinate) 50 Mg Tab.er.24h, 50 MG PO DAILY, (Reported) Nicotine (Nicotine Patch) 14 Mg Patch.td24, 1 PATCH TOP DAILY, (Reported) APPLIED TO LEFT SHOULDER Pantoprazole Sodium (Protonix) 40 Mg Tablet.dr, 40 MG PO DAILY, (Reported) Potassium Chloride (Potassium Chloride) 10 Meq Tab.er.prt, 10 MEQ PO BID, (Reported) Ramipril (Ramipril) 2.5 Mg Capsule, 2.5 MG PO DAILY, (Reported) Simvastatin (Simvastatin) 40 Mg Tablet, 40 MG PO QHS, (Reported) Scheduled PRN Acetaminophen (Acetaminophen) 500 Mg Tablet, 1,000 MG PO Q6H PRN for HEADACHE, (Reported) Hydrocodone/Acetaminophen (Hydrocodone-Acetamin 7.5-325) 1 Each Tablet, 1 TAB PO Q4H PRN for PAIN, (Reported) Ipratropium/Albuterol Sulfate (Iprat-Albut 0.5-3(2.5) mg/3 ml) 3 Ml Ampul.neb, 1 VIAL NEB TID PRN for SHORTNESS OF BREATH, (Reported) Ondansetron HCl (Ondansetron HCl) 8 Mg Tablet, 8 MG PO Q8H PRN for NAUSEA Prochlorperazine Maleate (Prochlorperazine Maleate) 10 Mg Tablet, 10 MG PO Q8H PRN for NAUSEA Allergies Coded Allergies: Penicillins (Verified Allergy, Unknown, HIVES, 04/03/20) Sruthi Berrios MD Apr 17, 2020 15:16
== END 2020-04-17 12:15 | disposition home health service (06) | DRG 181 ==
LOC: M ED 13:35 → M ED INP 17:23 → ENRESERV 17:28 → M PCU 18:06
PROVIDERS: ADMIT Thoracic Surgery (Cardiothoracic Vascular Surgery); ATTEND Internal Medicine
PROC: 0W9900Z Drainage of Right Pleural Cavity with Drainage Device, Open Approach (ICD-10-PCS; principal; 2020-04-15)
DX: C34.91 Malignant neoplasm of unspecified part of right bronchus or lung (principal); J91.0 Malignant pleural effusion; I48.20 Chronic atrial fibrillation, unspecified; E11.649 Type 2 diabetes mellitus with hypoglycemia without coma; I10 Essential (primary) hypertension; I25.2 Old myocardial infarction; J44.9 Chronic obstructive pulmonary disease, unspecified; E78.5 Hyperlipidemia, unspecified; I25.10 Atherosclerotic heart disease of native coronary artery without angina pectoris; I44.30 Unspecified atrioventricular block; G47.33 Obstructive sleep apnea (adult) (pediatric); K21.9 Gastro-esophageal reflux disease without esophagitis; Z90.49 Acquired absence of other specified parts of digestive tract; Z98.49 Cataract extraction status, unspecified eye; Z95.5 Presence of coronary angioplasty implant and graft; Z87.891 Personal history of nicotine dependence; Z95.0 Presence of cardiac pacemaker; Z79.01 Long term (current) use of anticoagulants; Z11.59 Encounter for screening for other viral diseases; Z79.4 Long term (current) use of insulin; Z79.899 Other long term (current) drug therapy; Z88.0 Allergy status to penicillin

== ENCOUNTER → 2020-04-19 | Outpatient (CLI) | payer MEDICARE, MEDICAID | LOC: M ONCR 08:58 | PROVIDERS: ATTEND Radiology Radiation Oncology | DX: C34.31 Malignant neoplasm of lower lobe, right bronchus or lung (principal) ==